=== PATIENT | male | born 1980 | race American Indian/Alaskan Native ===

== ENCOUNTER 2016-08-14 14:32 | Inpatient (IN) | payer BC ==
[2016-08-14] MEDS ORDERED: Sodium Chloride 0.9% 1,000 ML IV STA (15:13)
[2016-08-14] MEDS ORDERED: Morphine 4 mg/ml ISec IVP STA (15:29)
--- NOTE | 2016-08-14 15:31 | ED PDOC ---
Arrival/HPI <Jennifer Medina - Last Filed: 08/14/16 19:07> - General Historian: Patient <Cherri Diaz PA-C - Last Filed: 08/15/16 02:13> - General Chief Complaint: Abdominal Pain Time Seen by Provider: 08/14/16 14:48 - History of Present Illness Narrative History of Present Illness (Text): 08/14/16 15:30 36 yo M with past medical history of hypertension, presents to the emergency room complaining of one-week history of constant non-radiating left upper quadrant pain. Patient describes the pain as a bloating sensation that is worse at night and especially with eating. Patient states that he was seen at [facility] on Monday for similar symptoms, had blood work and a CAT scan which were within normal limits and was discharged. He then followed up next day with a GI doctor. Dr. Agrawal, he was prescribed Dexilant, Nexium and Carafate, which he has been taking since with no improvement of his symptoms prompting ER visit. He adds that he is scheduled for outpatient endoscopy in 1 week. He further adds that for the past several months he has developed intermittent episodes of indigestion, food intolerance, and reflux, to the point that he stopped eating beef. Otherwise: (-) nausea / vomiting, (-) diarrhea, (-) fever, (-) melena, (-) hematochezia, (-) urinary symptoms, (-) dyspnea, (-) SOB. Has no history of prior abdominal surgery. Of note, pt's bp is noted to be elevated, he states that he took his bp medication just uniform [employer]. Reports no headache or dizziness. PMD not on staff FAIZAN Agrawal (Cherri Diaz PA-C) Past Medical History - Provider Review Nursing Documentation Reviewed: Yes - Cardiac Hx Cardiac Disorders: Yes Hx Hypertension: Yes - Pulmonary Hx Respiratory Disorders: No - Neurological Hx Neurological Disorder: No - HEENT Hx HEENT Disorder: No - Renal Hx Renal Disorder: No - Endocrine/Metabolic Hx Endocrine Disorders: No - Hematological/Oncological Hx Blood Disorders: No - Integumentary Hx Dermatological Disorder: No - Musculoskeletal/Rheumatological Hx Musculoskeletal Disorders: No - Gastrointestinal Hx Gastrointestinal Disorders: No - Genitourinary/Gynecological Hx Genitourinary Disorders: No - Psychiatric Hx Psychophysiologic Disorder: No Hx Substance Use: No <Cherri Diaz PA-C - Last Filed: 08/15/16 02:13> Family/Social History - Physician Review Nursing Documentation Reviewed: Yes Family/Social History: Diabetes Smoking Status: Light Smoker < 10 Cigarettes Daily Hx Alcohol Use: No Hx Substance Use: No <Cherri Diaz PA-C - Last Filed: 08/15/16 02:13> Allergies/Home Meds <Jennifer Medina - Last Filed: 08/14/16 19:07> <Cherri Diaz PA-C - Last Filed: 08/15/16 02:13> Allergies/Adverse Reactions: Allergies No Known Allergies Allergy (Verified 08/14/16 14:42) Home Medications: Home Meds Medication Instructions Recorded Confirmed Dexlansoprazole [Dexilant] 60 mg PO DAILY 08/14/16 08/14/16 Omeprazole [Omeprazole] 40 mg PO DAILY 08/14/16 08/14/16 Sucralfate [Carafate Tab] 1 gm PO QID 08/14/16 08/14/16 amLODIPine [Norvasc] 10 mg PO DAILY 08/14/16 08/14/16 Review of Systems - Review of Systems Constitutional: Normal. absent: Fatigue, Weight Change, Fevers Respiratory: Normal. absent: SOB, Cough, Sputum Cardiovascular: Normal. absent: Chest Pain, Palpitations, Edema Gastrointestinal: Normal, Abdominal Pain, Appetite Changes. absent: Stool Changes, Diarrhea Musculoskeletal: Normal. absent: Arthralgias, Back Pain, Neck Pain Skin: Normal. absent: Rash, Pruritis, Skin Lesions <Cherri Diaz PA-C - Last Filed: 08/15/16 02:13> Physical Exam <Jennifer Medina - Last Filed: 08/14/16 19:07> <Cherri Diaz PA-C - Last Filed: 08/15/16 02:13> - Physical Exam Narrative Physical Exam (Text): 08/14/16 15:29 GENERAL APPEARANCE: Patient is awake, alert, oriented x 3, in mild painful distress. SKIN: Warm, dry; (-) cyanosis. EYES: (-) conjunctival pallor, (-) scleral icterus. ENMT: Mucous membranes dry. NECK: (-) tenderness, (-) stiffness, (-) lymphadenopathy. CHEST AND RESPIRATORY: (-) rales, (-) rhonchi, (-) wheezes; breath sounds equal bilaterally. HEART AND CARDIOVASCULAR: (-) irregularity; (-) murmur, (-) gallop. ABDOMEN AND GI: (-) distention. Bowel sounds active; (+) moderate tenderness epigastric and left side of the abdomen, greatest in the left upper quadrant, (- ) guarding, (-) rebound, (-) palpable masses, (-) CVA tenderness. (-) Celestin's sign. EXTREMITIES: (-) deformity, (-) edema, (+) distal pulses. NEURO AND PSYCH: Mental status as above; (-) focal findings. (Cherri Diaz PA-C) Vital Signs Temp Pulse Resp BP Pulse Ox 08/14/16 19:53 80 19 152/94 H 98 08/14/16 19:41 74 19 170/90 H 98 08/14/16 19:19 78 19 180/120 H 98 08/14/16 18:43 80 215/131 H 08/14/16 17:43 83 214/139 H 08/14/16 17:31 72 19 214/139 H 98 08/14/16 16:25 74 19 198/131 H 98 08/14/16 14:42 98.8 F 92 H 16 175/123 H 97 Medical Decision Making <Jennifer Medina - Last Filed: 08/14/16 19:07> <Cherri Diaz PA-C - Last Filed: 08/15/16 02:13> ED Course and Treatment: 08/14/16 15:28 36 yo M with past medical history of hypertension, presents to the emergency room complaining of one-week history of constant left upper quadrant pain. R/o acute cholecystitis vs cholelithiasis, likely dyspepsia. Plan: -- Labs -- IV fluids -- Urinalysis -- EKG -- CXR -- Protonix / Morphine / Zofran -- Reassess and disposition -- US ABD -- Consult with GI Call placed to Dr. Agrawal, and case discussed. he agrees with current plan, states if all diagnostics are normal and if pt is still symptomatic, to keep the patient for inpt observation and will do endoscopy tomorrow. EKG: NSR at 87 bpm, (-) acute ST changes, as read by LORI. CXR : NAD, as read by LORI Repeat BP 198/131 08/14/16 16:38 Labs reviewed and are wnl. US of the abdomen shows no gallstones or signs of cholecystitis. On re-evaluation, patient is resting in bed comfortably in no acute distress, still reports of abdominal pain. On exam, abdomen remains soft with mild L sided tenderness, no guarding or rebound. Call placed to Dr. Agrawal. Pt's BP 214/139 P 72, given clonidine 0.2 mg po. He denies any headache, dizziness, CP, SOB or palpitations. Diagnostic results d/w the patient in great detail, likely diagnosis d/w the pt and his . He verbalize understanding of the possible diagnosis. Case d/w Dr. Agrawal, diagnostic results discussed with him and he request that the pt stay for inpt observation under medical service, Dr. Rasmussen. Dr. Love notified of case and agrees with inpt observation. and Further plan of care d/w the pt and he agrees with plan. Bridge orders and consults placed. Pt's BP still elevated given labetolol 20 mg IV. (Joe MITTAL,Cherri Michel) - Lab Interpretations Lab Results: 08/14/16 14:57 08/14/16 14:57 Lab Results 08/14/16 16:18: Urine Color Yellow, Urine Appearance Clear, Urine pH 7.0, Ur Specific [place] 1.010, Urine Protein Negative, Urine Glucose (UA) Negative, Urine Ketones Negative, Urine Blood Negative, Urine Nitrate Negative, Urine Bilirubin Negative, Urine Urobilinogen 0.2, Ur Leukocyte Esterase Negative 08/14/16 14:57: Sodium 141, Potassium 4.5, Chloride 106, Carbon Dioxide 25, Anion Gap 15, BUN 13, Creatinine 1.2, Est GFR ( Amer) > 60, Est GFR (Non- Af Amer) > 60, Random Glucose 88, Calcium 9.6, Magnesium 1.9, Total Bilirubin 0.4, AST 24, ALT 18, Alkaline Phosphatase 54, Lactate Dehydrogenase 480, Total Creatine Kinase 113, Troponin I < 0.01, Total Protein 7.5, Albumin 4.1, Globulin 3.5, Albumin/Globulin Ratio 1.2, Lipase 166 08/14/16 14:57: PT 10.1, INR 0.94, APTT 31.5 H 08/14/16 14:57: WBC 6.4, RBC 4.61, Hgb 14.1, Hct 38.6 L, MCV 83.7, MCH 30.6, MCHC 36.5, RDW 13.6, Plt Count 279, MPV 9.8, Gran % 43.0 L, Lymph % (Auto) 45.6 H, [place] % (Auto) 7.8 H, Eos % (Auto) 3.4, Baso % (Auto) 0.2, Gran # 2.76, Lymph # 2.9, [place] # 0.5, Eos # 0.2, Baso # 0.01 - RAD Interpretation Narrative RAD Interpretations (Text): 08/14/16 16:37 US abd: FINDINGS: LIVER: Measures 14.4 cm. Hepatopedal blood flow. Fatty infiltration manifest ultrasonographically as increased echogenicity of the liver parenchyma. No mass. No intrahepatic bile duct dilatation. GALLBLADDER: Unremarkable. No gallstones. COMMON BILE DUCT: Measures 4.3 mm. No stones. No dilatation. PANCREAS: Unremarkable as visualized. No mass. No ductal dilatation. RIGHT KIDNEY: Measures 4.3 x 9.5cm. Multiple echogenic foci consistent with nonobstructing calculus disease. LEFT KIDNEY: Measures 4.8 x 10.8cm. Multiple echogenic foci the largest 10 mm consistent with nonobstructing calculi. SPLEEN: Normal in size and contour. No mass. AORTA: No aneurysmal dilatation. IVC: Unremarkable. OTHER FINDINGS: None. IMPRESSION: Nephrolithiasis, bilaterally. These are nonobstructing calculi. Hepatic steatosis. No focal masses. No intrahepatic bile duct dilatation or perihepatic ascites. (Joe MITTAL,Cherri Michel) Radiology Orders: 08/14/16 15:13 ABDOMEN COMPLETE [US] Stat 08/14/16 15:18 CHEST TWO VIEWS (PA/LAT) [RAD] Stat - Medication Orders Current Medication Orders: Amlodipine Besylate (Norvasc) 10 mg PO DAILY STEPHEN Sodium Chloride (Sodium Chloride 0.9%) 1,000 mls @ 75 mls/hr IV .[id number] [facility] Last Admin: 08/14/16 18:32 Dose: 75 mls/hr Ondansetron HCl (Zofran Inj) 4 mg IVP Q6 STEPHEN Pantoprazole Sodium (Protonix Inj) 40 mg IVP DAILY [facility] Pantoprazole Sodium (Protonix Ec Tab) 40 mg PO 0600 [facility] Sucralfate (Carafate Tab) 1 gm PO QID [facility] Last Admin: 08/14/16 23:27 Dose: 1 gm Discontinued Medications Clonidine HCl (Catapres) 0.2 mg PO STAT STA Stop: 08/14/16 17:35 Last Admin: 08/14/16 17:43 Dose: 0.2 mg Sodium Chloride (Sodium Chloride 0.9%) 1,000 mls @ 1,000 mls/hr IV .Q1H STA Stop: 08/14/16 16:12 Last Admin: 08/14/16 15:27 Dose: 1,000 mls/hr Sodium Chloride (Sodium Chloride 0.9%) 1,000 mls @ 100 mls/hr IV .Q10H [facility]PH[facility] Labetalol HCl (Trandate) 20 mg IV STAT STA Stop: 08/14/16 18:30 Last Admin: 08/14/16 18:43 Dose: 20 mg Morphine Sulfate (Morphine) 4 mg IVP STAT STA Stop: 08/14/16 15:30 Last Admin: 08/14/16 16:18 Dose: 4 mg Ondansetron HCl (Zofran Inj) 4 mg IVP STAT STA Stop: 08/14/16 15:30 Last Admin: 08/14/16 16:18 Dose: 4 mg Pantoprazole Sodium (Protonix Inj) 40 mg IVP STAT STA Stop: 08/14/16 15:14 Last Admin: 08/14/16 15:28 Dose: 40 mg - PA / FLIGHT COMMUNICATIONS OPERATOR / Resident Statement TYRONE has reviewed & agrees with the documentation as recorded. TYRONE has examined the patient and agrees with the treatment plan. <Jnenifer Medina - Last Filed: 08/14/16 19:07> - PA / FLIGHT COMMUNICATIONS OPERATOR / Resident Statement TYRONE has reviewed & agrees with the documentation as recorded. <Cherri Diaz PA-C - Last Filed: 08/15/16 02:13> Disposition/Present on Arrival <Jennifer Medina - Last Filed: 08/14/16 19:07> - Present on Arrival Any Indicators Present on Arrival: No History of DVT/PE: No History of Uncontrolled Diabetes: No Urinary Catheter: No History of Decub. Ulcer: No History Surgical Site Infection Following: None - Disposition Have Diagnosis and Disposition been Completed?: Yes Disposition Time: 16:53 Patient Plan: Observation (inpatient ) <Cherri Diaz PA-C - Last Filed: 08/15/16 02:13> - Disposition Diagnosis: Abdominal pain, Dyspepsia Disposition: HOSPITALIZED Patient Problems: Current Active Problems Problem Status Onset Abdominal pain Acute Dyspepsia Acute Condition: STABLE
[2016-08-14 15:39] LABS: BASO # 0.01 K/mm3 (0.0-2.0); BASO % 0.2 % (0.0-3.0); EOS # 0.2 (0.0-0.7); EOS % 3.4 % (1.5-5.0); GRAN # 2.76 (1.4-6.5); HEMOGLOBIN 14.1 gm/dL (14.0-18.0); LYMPH # 2.9 (1.2-3.4); LYMPH % 45.6 % (22.0-35.0); MEAN CELL VOLUME 83.7 fL (80.0-105.0); MEAN CORPUSCULAR HEMOGLOBIN 30.6 pg (25.0-35.0); MEAN CORPUSCULAR HGB CONC 36.5 g/dl (31.0-37.0); MEAN PLATELET VOLUME 9.8 fl (7.0-11.0); MONO # 0.5 (0.1-0.6); MONO % 7.8 % (1.0-6.0); PLATELET COUNT 279 10^3/uL (120.0-450.0); RBC 4.61 10^6/uL (3.5-6.1); RED CELL DISTRIBUTION WIDTH 13.6 % (11.5-14.5); WHITE BLOOD COUNT 6.4 10^3/ul (4.5-11.0)
[2016-08-14 15:43] LABS: ALB/GLOB RATIO 1.2 (1.1-1.8); ALBUMIN 4.1 g/dL (3.0-4.8); ALT/SGPT 18 U/L (7-56); AST/SGOT 24 U/L (15-59); BLOOD UREA NITROGEN 13 mg/dL (7-21); CALCIUM 9.6 mg/dL (8.4-10.5); GFR AFRICAN-AMERICAN > 60; GFR NON-AFRICAN AMERICAN > 60; LIPASE 166 U/L (23-300); MAGNESIUM 1.9 mg/dL (1.7-2.2)
[2016-08-14 15:54] LABS: INR 0.94 (0.93-1.08); PARTIAL THROMBOPLASTIN TIME 31.5 Seconds (23.7-30.8); PROTHROMBIN TIME 10.1 Seconds (9.9-11.8)
[2016-08-14 16:04] LABS: TROPONIN I < 0.01 ng/mL
--- NOTE | 2016-08-14 16:12 | US ---
HISTORY: epigastric pain COMPARISON: None. TECHNIQUE: Sonographic evaluation of the abdomen. FINDINGS: LIVER: Measures 14.4 cm. Hepatopedal blood flow. Fatty infiltration manifest ultrasonographically as increased echogenicity of the liver parenchyma. No mass. No intrahepatic bile duct dilatation. GALLBLADDER: Unremarkable. No gallstones. COMMON BILE DUCT: Measures 4.3 mm. No stones. No dilatation. PANCREAS: Unremarkable as visualized. No mass. No ductal dilatation. RIGHT KIDNEY: Measures 4.3 x 9.5cm. Multiple echogenic foci consistent with nonobstructing calculus disease. LEFT KIDNEY: Measures 4.8 x 10.8cm. Multiple echogenic foci the largest 10 mm consistent with nonobstructing calculi. SPLEEN: Normal in size and contour. No mass. AORTA: No aneurysmal dilatation. IVC: Unremarkable. OTHER FINDINGS: None. IMPRESSION: Nephrolithiasis, bilaterally. These are nonobstructing calculi. Hepatic steatosis. No focal masses. No intrahepatic bile duct dilatation or perihepatic ascites.
[2016-08-14 16:28] LABS: URINE BILIRUBIN NEGATIVE (NEGATIVE); URINE BLOOD NEGATIVE (NEGATIVE); URINE GLUCOSE (UA) NEGATIVE (NEGATIVE); URINE LEUKOCYTE ESTERASE NEGATIVE Leu/uL (NEGATIVE); URINE NITRATE NEGATIVE (NEGATIVE); URINE PROTEIN NEGATIVE mg/dL (<30 mg/dL); URINE UROBILINOGEN 0.2 E.U./dL (<1 E.U./dL)
[2016-08-14 16:29] LABS: URINE APPEARANCE CLEAR (CLEAR); URINE COLOR YELLOW (YELLOW)
--- NOTE | 2016-08-14 17:29 | RAD ---
HISTORY: Epigastric pain. COMPARISON: No prior. TECHNIQUE: Chest PA and lateral FINDINGS: LUNGS: No active pulmonary disease. PLEURA: No significant pleural effusion identified. No pneumothorax apparent. CARDIOVASCULAR: Normal. OSSEOUS STRUCTURES: No significant abnormalities. VISUALIZED UPPER ABDOMEN: Normal. OTHER FINDINGS: None. IMPRESSION: No active disease.
--- NOTE | 2016-08-14 18:10 | CP.PCM.HP ---
<De Smith - Last Filed: 08/18/16 10:00> History of Present Illness - History of Present Illness History of Present Illness: This is a 36 yo male with past medical hx of GERD and HTN presenting with abdominal pain x 7 days. Pain is in LUQ and non radiating. Pain has not been getting better or worse. He was not doing any thing exertional when it started. He was just talking. It feels like gas pain to him. He has never had this pain before prior to this week. He recently went to see Dr. Agrawal in his office regarding the pain. He gave him some sample dexilant and told him to go to ER if pain continues. It did and so he came in. He denies cough, fevers, chills, vomiting, diarrhea, blood in urine, blood in stool. PMH: HTN, GERD PSH: detorsion of testicles Allergies: NKDA FH: DM Social hx: Heavy smoker, over 1 ppd. Social drinker. Marijuana user. Meds: dexilant, sucralfate, amlodopine, omeprezole Present on Admission - Present on Admission Any Indicators Present on Admission: No History of DVT/PE: No History of Uncontrolled Diabetes: No Urinary Catheter: No Decubitus Ulcer Present: No Review of Systems - Review of Systems All systems: reviewed and no additional remarkable complaints except Review of Systems: negative except per hpi - Constitutional Constitutional: absent: Chills, Weight Loss - EENT Eyes: absent: Blurred Vision - Cardiovascular Cardiovascular: absent: Chest Pain, Syncope - Respiratory Respiratory: absent: Cough, Dyspnea, Dyspnea on Exertion - Gastrointestinal Gastrointestinal: Abdominal Pain. absent: Hematochezia - Genitourinary Genitourinary: absent: Dysuria, Nocturia - Musculoskeletal Musculoskeletal: absent: Muscle Weakness, Myalgias - Integumentary Integumentary: absent: Swelling - Neurological Neurological: absent: Numbness, Focal Weakness, Syncope - Psychiatric Psychiatric: absent: Anxiety, Depression - Endocrine Endocrine: absent: Palpitations - Hematologic/Lymphatic Hematologic: absent: Easy Bruising Past Patient History - Infectious Disease Hx of Infectious Diseases: None - Tetanus Immunizations Tetanus Immunization: Unknown - Past Medical History & Family History Past Medical History?: Yes Past Family History: Reviewed and not pertinent - Past Social History Smoking Status: Heavy Smoker > 10 Cigarettes Daily Chewing Tobacco Use: No Cigar Use: No Alcohol: Social Drugs: Cannabis Home Situation {Lives}: Alone Domestic Violence: Negative - CARDIAC Hx Cardiac Disorders: Yes Hx Hypertension: Yes - PULMONARY Hx Respiratory Disorders: No - NEUROLOGICAL Hx Neurological Disorder: No - HEENT Hx HEENT Problems: No - RENAL Hx Chronic Kidney Disease: No - ENDOCRINE/METABOLIC Hx Endocrine Disorders: No - HEMATOLOGICAL/ONCOLOGICAL Hx Blood Disorders: No - INTEGUMENTARY Hx Dermatological Problems: No - MUSCULOSKELETAL/RHEUMATOLOGICAL Hx Musculoskeletal Disorders: No - GASTROINTESTINAL Hx Gastrointestinal Disorders: No - GENITOURINARY/GYNECOLOGICAL Hx Genitourinary Disorders: No - PSYCHIATRIC Hx Psychophysiologic Disorder: No Hx Substance Use: No - SURGICAL HISTORY Hx Surgeries: No Meds Home Medications: Home Medication List Medication Instructions Recorded Confirmed Type Lisinopril [Zestril] 20 mg PO DAILY #7 tab 08/17/16 Rx amLODIPine [Norvasc] 10 mg PO DAILY #7 tab 08/17/16 Rx hydroCHLOROthiazide [Microzide] 12.5 mg PO DAILY #7 cap 08/17/16 Rx Allergies/Adverse Reactions: Allergies Allergy/AdvReac Type Severity Reaction Status Date / Time No Known Allergies Allergy Verified 08/14/16 14:42 Physical Exam - Constitutional Appears: Non-toxic, No Acute Distress - Head Exam Head Exam: ATRAUMATIC, NORMAL INSPECTION, NORMOCEPHALIC - Eye Exam Eye Exam: EOMI - ENT Exam ENT Exam: Mucous Membranes Moist - Neck Exam Neck exam: Positive for: Full Rom, Normal Inspection - Respiratory Exam Respiratory Exam: NORMAL BREATHING PATTERN. absent: Respiratory Distress - Cardiovascular Exam Cardiovascular Exam: +S1, +S2 - GI/Abdominal Exam GI & Abdominal Exam: Tenderness. absent: Guarding, Rebound Additional comments: moderate tenderness luq - Extremities Exam Extremities exam: Positive for: normal inspection - Neurological Exam Neurological exam: Alert, Oriented x3 - Psychiatric Exam Psychiatric exam: Normal Affect, Normal Mood - Skin Skin Exam: Dry, Intact, Normal Color, Warm Results - Vital Signs Recent Vital Signs: Last Vital Signs Temp 98.8 F 08/14/16 14:42 Pulse 83 08/14/16 17:43 Resp 19 08/14/16 17:31 BP 214/139 H 08/14/16 17:43 Pulse Ox 98 08/14/16 17:31 - Labs Result Diagrams: 08/17/16 05:30 08/17/16 05:30 Labs: Laboratory Results - last 24 hr 08/14/16 08/14/16 08/14/16 14:57 14:57 14:57 WBC 6.4 RBC 4.61 Hgb 14.1 Hct 38.6 L MCV 83.7 MCH 30.6 MCHC 36.5 RDW 13.6 Plt Count 279 MPV 9.8 Gran % 43.0 L Lymph % (Auto) 45.6 H [place] % (Auto) 7.8 H Eos % (Auto) 3.4 Baso % (Auto) 0.2 Gran # 2.76 Lymph # 2.9 [place] # 0.5 Eos # 0.2 Baso # 0.01 PT 10.1 INR 0.94 APTT 31.5 H Sodium 141 Potassium 4.5 Chloride 106 Carbon Dioxide 25 Anion Gap 15 BUN 13 Creatinine 1.2 Est GFR ( Amer) > 60 Est GFR (Non-Af Amer) > 60 Random Glucose 88 Calcium 9.6 Magnesium 1.9 Total Bilirubin 0.4 AST 24 ALT 18 Alkaline Phosphatase 54 Lactate Dehydrogenase 480 Total Creatine Kinase 113 Troponin I < 0.01 Total Protein 7.5 Albumin 4.1 Globulin 3.5 Albumin/Globulin Ratio 1.2 Lipase 166 Urine Color Urine Appearance Urine pH Ur Specific [place] Urine Protein Urine Glucose (UA) Urine Ketones Urine Blood Urine Nitrate Urine Bilirubin Urine Urobilinogen Ur Leukocyte Esterase 08/14/16 16:18 WBC RBC Hgb Hct MCV MCH MCHC RDW Plt Count MPV Gran % Lymph % (Auto) [place] % (Auto) Eos % (Auto) Baso % (Auto) Gran # Lymph # [place] # Eos # Baso # PT INR APTT Sodium Potassium Chloride Carbon Dioxide Anion Gap BUN Creatinine Est GFR ( Amer) Est GFR (Non-Af Amer) Random Glucose Calcium Magnesium Total Bilirubin AST ALT Alkaline Phosphatase Lactate Dehydrogenase Total Creatine Kinase Troponin I Total Protein Albumin Globulin Albumin/Globulin Ratio Lipase Urine Color Yellow Urine Appearance Clear Urine pH 7.0 Ur Specific [place] 1.010 Urine Protein Negative Urine Glucose (UA) Negative Urine Ketones Negative Urine Blood Negative Urine Nitrate Negative Urine Bilirubin Negative Urine Urobilinogen 0.2 Ur Leukocyte Esterase Negative Assessment & Plan - Assessment and Plan (Free Text) Assessment: This is a 36 yo male with past medical hx of GERD and HTN presenting with abdominal pain x 7 days 1. Abdominal pain -abd us shows nonobstructing calculi and fatty liver -cxr neg -Dr. Agrawal consulted. recs appreciated -plan for endo tomorrow -protonix -fluids -repeat labs am -zofran for nausea -ivf 2. hx of HTN -elevated bp over 200 in er -clonidine given -pt asymptomatic -will resume home meds 3. hx of gerd -resume dexilant -protonix 4. gi/dvt ppx -protonix -scds <Micheal Rasmussen - Last Filed: 08/30/16 10:05> Results - Vital Signs Recent Vital Signs: Last Vital Signs Temp 98.4 F 08/17/16 15:40 Pulse 84 08/17/16 16:17 Resp 16 08/17/16 15:40 BP 200/110 H 08/17/16 16:17 Pulse Ox 99 08/17/16 15:40 - Labs Result Diagrams: 08/17/16 05:30 08/17/16 05:30 Attending/Attestation - Attestation I have personally seen and examined this patient.: Yes I have fully participated in the care of the patient.: Yes I have reviewed all pertinent clinical information: Yes Notes (Text): 08/30/16 10:05 Medical record note made by resident after discussion with my direction and input after the patient personally seen and examined by me. I have reviewed the chart and agree that the note represents my personal history, physical, data review and plan.
[2016-08-14] MEDS ORDERED: Sodium Chloride 0.9% 1,000 ML IV SCH ×2 (18:15)
[2016-08-14] MEDS ORDERED: Labetalol 5 mg/ml Inj 20ML IV STA (18:29)
[2016-08-14 19:36] LABS: BARBITURATES, UR NEGATIVE (NEGATIVE); BENZODIAZEPINES, UR NEGATIVE (NEGATIVE); OPIATES, UR POSITIVE (NEGATIVE); PHENCYCLIDINE, UR NEGATIVE (NEGATIVE)
[2016-08-14 21:18] VITALS: BMI 27.7
[2016-08-15 08:03] LABS: BASO # 0.01 K/mm3 (0.0-2.0); BASO % 0.2 % (0.0-3.0); EOS # 0.2 (0.0-0.7); EOS % 2.5 % (1.5-5.0); GRAN # 3.22 (1.4-6.5); GRAN % 53.9 % (50.0-68.0); HEMOGLOBIN 14.5 gm/dL (14.0-18.0); LYMPH # 2.1 (1.2-3.4); LYMPH % 35.5 % (22.0-35.0); MEAN CELL VOLUME 83.2 fL (80.0-105.0); MEAN CORPUSCULAR HEMOGLOBIN 30.1 pg (25.0-35.0); MEAN CORPUSCULAR HGB CONC 36.3 g/dl (31.0-37.0); MEAN PLATELET VOLUME 9.7 fl (7.0-11.0); MONO # 0.5 (0.1-0.6); MONO % 7.9 % (1.0-6.0); PLATELET COUNT 267 10^3/uL (120.0-450.0); RBC 4.81 10^6/uL (3.5-6.1); RED CELL DISTRIBUTION WIDTH 13.6 % (11.5-14.5)
[2016-08-15 08:13] LABS: ALB/GLOB RATIO 1.1 (1.1-1.8); ALBUMIN 4.3 g/dL (3.0-4.8); ALT/SGPT 25 U/L (7-56); AST/SGOT 25 U/L (15-59); BLOOD UREA NITROGEN 8 mg/dL (7-21); CALCIUM 9.4 mg/dL (8.4-10.5); GFR AFRICAN-AMERICAN > 60; GFR NON-AFRICAN AMERICAN > 60
[2016-08-15] MEDS: Pantoprazole 40 mg EC Tab PO SCH (08:39)
--- NOTE | 2016-08-15 11:19 | CP.PCM.CON ---
<Eev Tejeda - Last Filed: 08/15/16 11:17> History of Present Illness - History of Present Illness History of Present Illness: seen and examined earlier today. The chart was reviewed. Request for consultation is for epigastric pain. HPI: This is a 36-year-old male with a past medical history of hypertension and GERD with complaints of abdominal pain for 7 days mostly in the epigastric area. The patient complains of gas pains. He was in our outpatient office recently and was given samples of excellent which patient states helped the GERD but he continues to have epigastric pain. He describes it as if someone is caking him in the chest. Denies any shortness of breath. He did have an abdominal ultrasound on admission which was negative for gallstones but common bile duct measured 4 mm. Denies any use of NSAIDs. No complaints of any change in bowel habits or any overt GI bleed. Denies any nausea vomiting hematemesis. No complaints of any dysuria or hematuria. Past medical history: GERD, hypertension Surgical history: To torsion of testicles Family history: Diabetes mellitus Allergies no known drug allergies Medications: Reviewed as per MAR Social history: Patient smokes over a one pack per day, drinks alcohol only socially, patient uses marijuana or recreational purposes, last usage was prior to coming to the hospital. ROS: Systems reviewed with positive findings see HPI Abdominal ultrasound: No gallstones, common bile duct measures 4 mm, fatty liver Past Patient History - Infectious Disease Hx of Infectious Diseases: None - Tetanus Immunizations Tetanus Immunization: Unknown - Past Medical History & Family History Past Medical History?: Yes Past Family History: Reviewed and not pertinent - Past Social History Smoking Status: Light Smoker < 10 Cigarettes Daily - CARDIAC Hx Cardiac Disorders: Yes Hx Hypertension: Yes - PULMONARY Hx Respiratory Disorders: No - NEUROLOGICAL Hx Neurological Disorder: No - HEENT Hx HEENT Problems: No - RENAL Hx Chronic Kidney Disease: No - ENDOCRINE/METABOLIC Hx Endocrine Disorders: No - HEMATOLOGICAL/ONCOLOGICAL Hx Blood Disorders: No - INTEGUMENTARY Hx Dermatological Problems: No - MUSCULOSKELETAL/RHEUMATOLOGICAL Hx Musculoskeletal Disorders: No - GASTROINTESTINAL Hx Gastrointestinal Disorders: No - GENITOURINARY/GYNECOLOGICAL Hx Genitourinary Disorders: No - PSYCHIATRIC Hx Psychophysiologic Disorder: No Hx Substance Use: No - SURGICAL HISTORY Hx Surgeries: No Meds Allergies/Adverse Reactions: Allergies Allergy/AdvReac Type Severity Reaction Status Date / Time No Known Allergies Allergy Verified 08/14/16 14:42 - Medications Medications: Current Medications Amlodipine Besylate (Norvasc) 10 mg PO DAILY [facility] Last Admin: 08/15/16 10:12 Dose: 10 mg Sodium Chloride (Sodium Chloride 0.9%) 1,000 mls @ 75 mls/hr IV .[id number] [facility] Last Admin: 08/14/16 18:32 Dose: 75 mls/hr Ondansetron HCl (Zofran Inj) 4 mg IVP Q6 [facility] Last Admin: 08/15/16 06:32 Dose: 4 mg Pantoprazole Sodium (Protonix Inj) 40 mg IVP DAILY [facility] Last Admin: 08/15/16 10:12 Dose: 40 mg Pantoprazole Sodium (Protonix Ec Tab) 40 mg PO 0600 [facility] Last Admin: 08/15/16 08:39 Dose: Not Given Sucralfate (Carafate Tab) 1 gm PO ACHS [facility] Last Admin: 08/15/16 08:39 Dose: Not Given Physical Exam - Constitutional Appears: No Acute Distress - Head Exam Head Exam: NORMAL INSPECTION - Eye Exam Eye Exam: Normal appearance, PERRL. absent: Scleral icterus - ENT Exam ENT Exam: Mucous Membranes Moist - Neck Exam Neck exam: Positive for: Normal Inspection - Respiratory Exam Respiratory Exam: Clear to Auscultation Bilateral, NORMAL BREATHING PATTERN. absent: Respiratory Distress - Cardiovascular Exam Cardiovascular Exam: +S1, +S2 - GI/Abdominal Exam GI & Abdominal Exam: Normal Bowel Sounds, Soft, Tenderness. absent: Guarding, Organomegaly, Rebound Additional comments: epigastric tenderness - Extremities Exam Extremities exam: Positive for: pedal pulses present. Negative for: calf tenderness, pedal edema - Neurological Exam Neurological exam: Alert, Oriented x3 - Skin Skin Exam: Dry, Warm Results - Vital Signs Recent Vital Signs: Last Vital Signs Temp 97.7 F 08/15/16 08:52 Pulse 73 08/15/16 08:52 Resp 18 08/15/16 08:52 BP 168/100 H 08/15/16 10:12 Pulse Ox 100 08/15/16 08:52 - Labs Result Diagrams: 08/15/16 07:40 08/15/16 07:40 Labs: Laboratory Results - last 24 hr 08/14/16 08/15/16 08/15/16 18:35 07:40 07:40 WBC 6.0 RBC 4.81 Hgb 14.5 Hct 40.0 L MCV 83.2 MCH 30.1 MCHC 36.3 RDW 13.6 Plt Count 267 MPV 9.7 Gran % 53.9 Lymph % (Auto) 35.5 H [place] % (Auto) 7.9 H Eos % (Auto) 2.5 Baso % (Auto) 0.2 Gran # 3.22 Lymph # 2.1 [place] # 0.5 Eos # 0.2 Baso # 0.01 Sodium 141 Potassium 3.7 Chloride 107 Carbon Dioxide 25 Anion Gap 13 BUN 8 Creatinine 1.1 Est GFR ( Amer) > 60 Est GFR (Non-Af Amer) > 60 Random Glucose 81 Calcium 9.4 Total Bilirubin 0.5 AST 25 ALT 25 Alkaline Phosphatase 67 Total Protein 8.2 Albumin 4.3 Globulin 3.9 Albumin/Globulin Ratio 1.1 Urine Opiates Screen Positive H Urine Methadone Screen Negative Ur Barbiturates Screen Negative Ur Phencyclidine Scrn Negative Ur Amphetamines Screen Negative U Benzodiazepines Scrn Negative U Oth Cocaine Metabols Negative U Cannabinoids Screen Positive H Assessment & Plan - Assessment and Plan (Free Text) Assessment: Assessment: Epigastric pain, rule out peptic ulcer disease Hypertension Fatty liver Plan: Nothing by mouth, continue IV after hydration Plan for EGD today Continue Protonix 40 daily On Carafate On amlodipine Thank you for this consultation and for allowing us to participate in your patient's care, will make further recommendations based upon patient's clinical course. Seen and discussed with Dr. Agrawal. <Marjorie Agrawal V - Last Filed: 08/15/16 23:49> Meds - Medications Medications: Current Medications Amlodipine Besylate (Norvasc) 10 mg PO DAILY [facility] Last Admin: 08/15/16 10:12 Dose: 10 mg Clonidine HCl (Catapres) 0.1 mg PO TID [facility] Last Admin: 08/15/16 17:46 Dose: 0.1 mg Sodium Chloride (Sodium Chloride 0.9%) 1,000 mls @ 75 mls/hr IV .[id number] [facility] Last Admin: 08/14/16 18:32 Dose: 75 mls/hr Dextrose/Sodium Chloride (Dextrose 5%/0.45% Ns 1000 Ml) 1,000 mls @ 150 mls/hr IV .Q6H40M [facility] Nicardipine HCl (Cardene Iv Premix) 20 mg in 200 mls @ 50 mls/hr IV .Q4H PRN; Protocol; 5 MG/HR PRN Reason: TITRATE PER PROTOCOL Last Admin: 08/15/16 21:46 Dose: 5 mg/hr, 50 mls/hr Ondansetron HCl (Zofran Inj) 4 mg IVP Q6 [facility] Last Admin: 08/15/16 17:45 Dose: Not Given Pantoprazole Sodium (Protonix Inj) 40 mg IVP DAILY [facility] Last Admin: 08/15/16 10:12 Dose: 40 mg Pantoprazole Sodium (Protonix Ec Tab) 40 mg PO 0600 [facility] Last Admin: 08/15/16 08:39 Dose: Not Given Polyethylene Glycol (Miralax) 17 gm PO DAILY [facility] Sucralfate (Carafate Tab) 1 gm PO ACHS [facility] Last Admin: 08/15/16 21:11 Dose: 1 gm Tamsulosin HCl (Flomax) 0.4 mg PO DAILY [facility] Results - Vital Signs Recent Vital Signs: Last Vital Signs Temp 97.5 F L 08/15/16 15:13 Pulse 83 08/15/16 20:30 Resp 11 L 08/15/16 20:30 BP 135/68 08/15/16 20:00 Pulse Ox 99 08/15/16 19:10 - Labs Result Diagrams: 08/15/16 07:40 08/15/16 07:40 Labs: Laboratory Results - last 24 hr 08/15/16 15:30 Lactate Dehydrogenase 413 Total Creatine Kinase 109 Troponin I < 0.01 Attending/Attestation - Attestation I have personally seen and examined this patient.: Yes I have fully participated in the care of the patient.: Yes I have reviewed all pertinent clinical information: Yes Notes (Text): this
[2016-08-15] MEDS ORDERED: POLYETHYLENE GLYCOL 3350 17 GM/Dose PACKET PO ONE (11:28)
--- NOTE | 2016-08-15 11:30 | CARD ---
APPROVED REPORT EKG Measurement Heart [id number] <Conclusion> Normal sinus rhythm Possible Left atrial enlargement Borderline ECG
[2016-08-15] MEDS: Nicardipine 20 MG/200 ML 20 MG/200 ML BAG IV PRN ×3 (13:46→21:46)
--- NOTE | 2016-08-15 14:15 | CP.PCM.CON ---
<Kisha Patel - Last Filed: 08/15/16 15:34> History of Present Illness - History of Present Illness History of Present Illness: PGY-2 ICU consult note 36-year-old male with a past medical history of hypertension and GERD presented to ED with abdominal pain for the past week. 7 days mostly in the epigastric area. Patient was admitted to hospital and was scheduled to endoscopy. Before he could get scoped his blood pressure was found to be elevated. Patient states that he is non complaint with home blood pressure medications. He states that the epigastric pain has improved, pain is 6/10. Patient denies fever, chills, chest pain, n/v/d/c. PMH: GERD, hypertension PSH: To torsion of testicles Family hx: Diabetes mellitus Allergies: NKDA Social history: smoker, 1ppd, drinks alcohol only socially, patient uses marijuana or recreational purposes Review of Systems - Constitutional Constitutional: absent: Chills, Fatigue, Fever, Headache - EENT Eyes: absent: Blurred Vision Nose/Mouth/Throat: absent: Nasal Congestion, Nasal Discharge, Sore Throat - Cardiovascular Cardiovascular: absent: Chest Pain, Diaphoresis, Dyspnea, Leg Edema, Lightheadedness - Respiratory Respiratory: absent: Cough, Dyspnea, Hemoptysis - Gastrointestinal Gastrointestinal: Abdominal Pain (epigastric). absent: Constipation, Diarrhea, Nausea, Vomiting - Genitourinary Genitourinary: absent: Change in Urinary Stream, Difficulty Urinating, Dysuria - Musculoskeletal Musculoskeletal: absent: Arthralgias, Back Pain, Myalgias, Neck Pain - Integumentary Integumentary: absent: Pruritus, Rash, Sores, Wounds, Jaundice - Neurological Neurological: absent: Dizziness, Numbness, Headaches, Vertigo - Hematologic/Lymphatic Hematologic: absent: Easy Bleeding, Easy Bruising Past Patient History - Infectious Disease Hx of Infectious Diseases: None - Tetanus Immunizations Tetanus Immunization: Unknown - Past Medical History & Family History Past Medical History?: Yes Past Family History: Reviewed and not pertinent - Past Social History Smoking Status: Heavy Smoker > 10 Cigarettes Daily Alcohol: Social Drugs: Cannabis - CARDIAC Hx Cardiac Disorders: Yes Hx Hypertension: Yes - PULMONARY Hx Respiratory Disorders: No - NEUROLOGICAL Hx Neurological Disorder: No - HEENT Hx HEENT Problems: No - RENAL Hx Chronic Kidney Disease: No - ENDOCRINE/METABOLIC Hx Endocrine Disorders: No - HEMATOLOGICAL/ONCOLOGICAL Hx Blood Disorders: No - INTEGUMENTARY Hx Dermatological Problems: No - MUSCULOSKELETAL/RHEUMATOLOGICAL Hx Musculoskeletal Disorders: No - GASTROINTESTINAL Hx Gastrointestinal Disorders: No - GENITOURINARY/GYNECOLOGICAL Hx Genitourinary Disorders: No - PSYCHIATRIC Hx Psychophysiologic Disorder: No Hx Substance Use: No - SURGICAL HISTORY Hx Surgeries: No Meds Allergies/Adverse Reactions: Allergies Allergy/AdvReac Type Severity Reaction Status Date / Time No Known Allergies Allergy Verified 08/14/16 14:42 - Medications Medications: Current Medications Amlodipine Besylate (Norvasc) 10 mg PO DAILY [facility] Last Admin: 08/15/16 10:12 Dose: 10 mg Clonidine HCl (Catapres) 0.1 mg PO TID [facility] Last Admin: 08/15/16 13:30 Dose: 0.1 mg Sodium Chloride (Sodium Chloride 0.9%) 1,000 mls @ 75 mls/hr IV .[id number] [facility] Last Admin: 08/14/16 18:32 Dose: 75 mls/hr Dextrose/Sodium Chloride (Dextrose 5%/0.45% Ns 1000 Ml) 1,000 mls @ 150 mls/hr IV .Q6H40M [facility] Nicardipine HCl (Cardene Iv Premix) 20 mg in 200 mls @ 50 mls/hr IV .Q4H PRN; Protocol; 5 MG/HR PRN Reason: TITRATE PER PROTOCOL Last Admin: 08/15/16 13:46 Dose: 5 mg/hr, 50 mls/hr Ondansetron HCl (Zofran Inj) 4 mg IVP Q6 [facility] Last Admin: 08/15/16 12:49 Dose: Not Given Pantoprazole Sodium (Protonix Inj) 40 mg IVP DAILY [facility] Last Admin: 08/15/16 10:12 Dose: 40 mg Pantoprazole Sodium (Protonix Ec Tab) 40 mg PO 0600 [facility] Last Admin: 08/15/16 08:39 Dose: Not Given Polyethylene Glycol (Miralax) 17 gm PO DAILY [facility] Sucralfate (Carafate Tab) 1 gm PO ACHS [facility] Last Admin: 08/15/16 12:01 Dose: Not Given Tamsulosin HCl (Flomax) 0.4 mg PO DAILY [facility] Physical Exam - Constitutional Appears: Well, No Acute Distress - Head Exam Head Exam: ATRAUMATIC, NORMOCEPHALIC - Eye Exam Eye Exam: EOMI, Normal appearance - ENT Exam ENT Exam: Mucous Membranes Moist - Respiratory Exam Respiratory Exam: Clear to Auscultation Bilateral, NORMAL BREATHING PATTERN. absent: Rales, Rhonchi, Wheezes, Respiratory Distress - Cardiovascular Exam Cardiovascular Exam: REGULAR RHYTHM, +S1, +S2. absent: Tachycardia, Diastolic murmur, Systolic Murmur - GI/Abdominal Exam GI & Abdominal Exam: Normal Bowel Sounds, Soft, Tenderness. absent: Distended, Firm - Neurological Exam Neurological exam: Alert, Oriented x3 - Skin Skin Exam: Dry, Intact, Normal Color, Warm Results - Vital Signs Recent Vital Signs: Last Vital Signs Temp 99.1 F 08/15/16 13:00 Pulse 89 08/15/16 14:00 Resp 22 08/15/16 14:00 BP 181/106 H 08/15/16 14:00 Pulse Ox 99 08/15/16 13:45 - Labs Result Diagrams: 08/15/16 07:40 08/15/16 07:40 Labs: Laboratory Results - last 24 hr 08/14/16 08/15/16 08/15/16 18:35 07:40 07:40 WBC 6.0 RBC 4.81 Hgb 14.5 Hct 40.0 L MCV 83.2 MCH 30.1 MCHC 36.3 RDW 13.6 Plt Count 267 MPV 9.7 Gran % 53.9 Lymph % (Auto) 35.5 H [place] % (Auto) 7.9 H Eos % (Auto) 2.5 Baso % (Auto) 0.2 Gran # 3.22 Lymph # 2.1 [place] # 0.5 Eos # 0.2 Baso # 0.01 Sodium 141 Potassium 3.7 Chloride 107 Carbon Dioxide 25 Anion Gap 13 BUN 8 Creatinine 1.1 Est GFR ( Amer) > 60 Est GFR (Non-Af Amer) > 60 Random Glucose 81 Calcium 9.4 Total Bilirubin 0.5 AST 25 ALT 25 Alkaline Phosphatase 67 Total Protein 8.2 Albumin 4.3 Globulin 3.9 Albumin/Globulin Ratio 1.1 Urine Opiates Screen Positive H Urine Methadone Screen Negative Ur Barbiturates Screen Negative Ur Phencyclidine Scrn Negative Ur Amphetamines Screen Negative U Benzodiazepines Scrn Negative U Oth Cocaine Metabols Negative U Cannabinoids Screen Positive H Assessment & Plan - Assessment and Plan (Free Text) Assessment: 36-year-old male with a past medical history of hypertension and GERD presented with HTN urgency. Plan: Neuro: Patient is alert adn oriented. CV: Hypertensive, will start nicardipine drip, clonidine 0.1 TID, continue to monitor. Pulm: Comfortable on RA. Maintain spO2>90% GI: heart health diet, GI following, unable to complete endoscopy due to elevated BP. ultrasound showed nephrolithiasis bilateral, nonobstructing calculi Neprho: ultrasound showed nephrolithiasis bilateral, nonobstructing calculi. Urology consulted. Will continue to monitor electrolytes and will replace as needed. Monitor I&O. Maintain euvolemia ID: afebrile without leukocytosis, Maintain normothermia Endo: Maintain euglycemia GI ppx: Protonix <Kai Menard - Last Filed: 08/15/16 17:05> Meds - Medications Medications: Current Medications Amlodipine Besylate (Norvasc) 10 mg PO DAILY [facility] Last Admin: 08/15/16 10:12 Dose: 10 mg Clonidine HCl (Catapres) 0.1 mg PO TID [facility] Last Admin: 08/15/16 13:30 Dose: 0.1 mg Sodium Chloride (Sodium Chloride 0.9%) 1,000 mls @ 75 mls/hr IV .[id number] [facility] Last Admin: 08/14/16 18:32 Dose: 75 mls/hr Dextrose/Sodium Chloride (Dextrose 5%/0.45% Ns 1000 Ml) 1,000 mls @ 150 mls/hr IV .Q6H40M [facility] Nicardipine HCl (Cardene Iv Premix) 20 mg in 200 mls @ 50 mls/hr IV .Q4H PRN; Protocol; 5 MG/HR PRN Reason: TITRATE PER PROTOCOL Last Admin: 08/15/16 13:46 Dose: 5 mg/hr, 50 mls/hr Ondansetron HCl (Zofran Inj) 4 mg IVP Q6 [facility] Last Admin: 08/15/16 12:49 Dose: Not Given Pantoprazole Sodium (Protonix Inj) 40 mg IVP DAILY [facility] Last Admin: 08/15/16 10:12 Dose: 40 mg Pantoprazole Sodium (Protonix Ec Tab) 40 mg PO 0600 [facility] Last Admin: 08/15/16 08:39 Dose: Not Given Polyethylene Glycol (Miralax) 17 gm PO DAILY [facility] Sucralfate (Carafate Tab) 1 gm PO ACHS [facility] Last Admin: 08/15/16 16:06 Dose: 1 gm Tamsulosin HCl (Flomax) 0.4 mg PO DAILY [facility] Results - Vital Signs Recent Vital Signs: Last Vital Signs Temp 97.5 F L 08/15/16 15:13 Pulse 88 08/15/16 15:13 Resp 20 08/15/16 15:13 BP 165/101 H 08/15/16 15:13 Pulse Ox 99 08/15/16 14:30 - Labs Result Diagrams: 08/15/16 07:40 08/15/16 07:40 Labs: Laboratory Results - last 24 hr 08/15/16 15:30 Lactate Dehydrogenase 413 Total Creatine Kinase 109 Troponin I < 0.01 Attending/Attestation - Attestation I have personally seen and examined this patient.: Yes I have fully participated in the care of the patient.: Yes I have reviewed all pertinent clinical information: Yes Notes (Text): 08/15/16 17:01 36 yo male with hypertensive emergency. Unable to control BP with IV boluses and po. Admitted to ICU for cardene drip. No end organ dysfunction. mentating well, not in shock, troponin x 2 negative, creatinine is improving. not in respiratory distress and epigastric pain is decreasing. Abdo US did not reveal AAA. Will start clonidine PO to expedite weaning off antihypertnsive drip. ccm time 40 min
[2016-08-15 14:32] VITALS: O2SAT 99
--- NOTE | 2016-08-15 15:28 | CP.PCM.PN ---
<Naresh Trinidad - Last Filed: 08/15/16 15:20> Subjective - Date & Time of Evaluation Date of Evaluation: 08/15/16 Time of Evaluation: 07:10 - Subjective Subjective: Naresh Trinidad D.O. PGY-2, Internal Medicine, Dr. Rasmussen Service: Progress Note 36 year old male with a PMH of HTN who presented for complaints of LUQ pain for 1 week. Patient was seen and examined at bedside with business services intern and attending physician. Patient states that his pain is currently well controlled with the pain regimen he is on and otherwise has not had any other acute issues. Patient is going to have an EGD today. No overnight events. Objective - Vital Signs/Intake and Output Vital Signs (last 24 hours): Temp Pulse Resp BP Pulse Ox 99.1 F 90 17 165/99 H 99 08/15/16 13:00 08/15/16 14:30 08/15/16 14:30 08/15/16 14:30 08/15/16 14:30 - Medications Medications: Current Medications Amlodipine Besylate (Norvasc) 10 mg PO DAILY [facility] Last Admin: 08/15/16 10:12 Dose: 10 mg Clonidine HCl (Catapres) 0.1 mg PO TID [facility] Last Admin: 08/15/16 13:30 Dose: 0.1 mg Sodium Chloride (Sodium Chloride 0.9%) 1,000 mls @ 75 mls/hr IV .[id number] [facility] Last Admin: 08/14/16 18:32 Dose: 75 mls/hr Dextrose/Sodium Chloride (Dextrose 5%/0.45% Ns 1000 Ml) 1,000 mls @ 150 mls/hr IV .Q6H40M [facility] Nicardipine HCl (Cardene Iv Premix) 20 mg in 200 mls @ 50 mls/hr IV .Q4H PRN; Protocol; 5 MG/HR PRN Reason: TITRATE PER PROTOCOL Last Admin: 08/15/16 13:46 Dose: 5 mg/hr, 50 mls/hr Ondansetron HCl (Zofran Inj) 4 mg IVP Q6 [facility] Last Admin: 08/15/16 12:49 Dose: Not Given Pantoprazole Sodium (Protonix Inj) 40 mg IVP DAILY [facility] Last Admin: 08/15/16 10:12 Dose: 40 mg Pantoprazole Sodium (Protonix Ec Tab) 40 mg PO 0600 [facility] Last Admin: 08/15/16 08:39 Dose: Not Given Polyethylene Glycol (Miralax) 17 gm PO DAILY [facility] Sucralfate (Carafate Tab) 1 gm PO ACHS [facility] Last Admin: 08/15/16 12:01 Dose: Not Given Tamsulosin HCl (Flomax) 0.4 mg PO DAILY [facility] - Labs Labs: PT 10.1 Seconds (9.9-11.8) 08/14/16 14:57 INR 0.94 (0.93-1.08) 08/14/16 14:57 APTT 31.5 Seconds (23.7-30.8) H 08/14/16 14:57 - Constitutional Appears: well developed, well nourished, in NAD - Head Exam Head Exam: ATRAUMATIC, NORMAL INSPECTION, NORMOCEPHALIC - Eye Exam Eye Exam: EOMI, PERRL - ENT Exam ENT Exam: Mucous Membranes Moist, no pharyngeal erythema - Neck Exam Neck exam: soft and supple - Respiratory Exam Respiratory Exam: CTAB, no W/R/R - Cardiovascular Exam Cardiovascular Exam: RRR, +S1, +S2, no M/R/G - GI/Abdominal Exam GI & Abdominal Exam: soft, mild voluntary guarding, mild distension, LUQ tenderness to palpation, positive CVA on left - Extremities Exam Extremities exam: no calf tenderness, no edema - Neurological Exam Neurological exam: Alert, Oriented x4 - Skin Skin Exam: Dry, Intact, Normal Color, Warm Assessment and Plan - Assessment and Plan (Free Text) Assessment: 36 year old male with a PMH of HTN who presented for complaints of LUQ pain for 1 week. Plan: 1. LUQ/epigastric abdominal pain Likely 2/2 BL nephrolithiasis L>R with 10mm stone seen on US vs gastritis vs gastric ulcer GI Dr. Agrawal following, schedule for endoscopy today Urology Dr. Story also consulted, pending recs Started flomax, D5 1/2NS @ 150ml/hr, already on amlodipine 10mg Strain all urine 2. HTN - uncontrolled Patient noncompliant at home Compliance re-enforced Cont amlodipine 3. GERD Continue protonix GI following GI/DVT ppx: protonix/SCDs Patient was seen and examined and case was discussed with attending physician. <Micheal Rasmussen - Last Filed: 08/30/16 10:04> Objective - Vital Signs/Intake and Output Vital Signs (last 24 hours): Temp Pulse Resp BP Pulse Ox 98.4 F 84 16 200/110 H 99 08/17/16 15:40 08/17/16 16:17 08/17/16 15:40 08/17/16 16:17 08/17/16 15:40 - Labs Labs: 08/17/16 05:30 08/17/16 05:30 PT 10.1 Seconds (9.9-11.8) 08/14/16 14:57 INR 0.94 (0.93-1.08) 08/14/16 14:57 APTT 31.5 Seconds (23.7-30.8) H 08/14/16 14:57 Attending/Attestation - Attestation I have personally seen and examined this patient.: Yes I have fully participated in the care of the patient.: Yes I have reviewed all pertinent clinical information, including history, physical exam and plan: Yes Notes (Text): 08/30/16 10:04 Medical record note made by resident after discussion with my direction and input after the patient personally seen and examined by me. I have reviewed the chart and agree that the note represents my personal history, physical, data review and plan.
[2016-08-15] MEDS ORDERED: Magnesium Citrate Oral SOL (300 ml) PO ONE (16:16)
[2016-08-15 16:22] LABS: TROPONIN I < 0.01 ng/mL
[2016-08-16 05:37] LABS: BASO # 0.01 K/mm3 (0.0-2.0); BASO % 0.2 % (0.0-3.0); EOS # 0.2 (0.0-0.7); EOS % 2.4 % (1.5-5.0); GRAN % 42.1 % (50.0-68.0); HEMOGLOBIN 14.8 gm/dL (14.0-18.0); LYMPH # 2.8 (1.2-3.4); LYMPH % 45.4 % (22.0-35.0); MEAN CELL VOLUME 82.9 fL (80.0-105.0); MEAN CORPUSCULAR HEMOGLOBIN 30.5 pg (25.0-35.0); MEAN CORPUSCULAR HGB CONC 36.8 g/dl (31.0-37.0); MEAN PLATELET VOLUME 9.6 fl (7.0-11.0); MONO # 0.6 (0.1-0.6); MONO % 9.9 % (1.0-6.0); PLATELET COUNT 295 10^3/uL (120.0-450.0); RBC 4.85 10^6/uL (3.5-6.1); RED CELL DISTRIBUTION WIDTH 13.6 % (11.5-14.5); WHITE BLOOD COUNT 6.2 10^3/ul (4.5-11.0)
[2016-08-16 05:43] LABS: ALB/GLOB RATIO 1.1 (1.1-1.8); ALBUMIN 4.5 g/dL (3.0-4.8); ALT/SGPT 27 U/L (7-56); AST/SGOT 42 U/L (15-59); BLOOD UREA NITROGEN 13 mg/dL (7-21); CALCIUM 9.7 mg/dL (8.4-10.5); GFR AFRICAN-AMERICAN > 60; GFR NON-AFRICAN AMERICAN > 60
[2016-08-16] MEDS: Pantoprazole 40 mg EC Tab PO SCH (06:31)
--- NOTE | 2016-08-16 06:52 | PCM.URO ---
Urology Progress Note - Objective Lab Results Last 24 Hours: Laboratory Results - last 24 hr 08/15/16 08/16/16 08/16/16 15:30 04:45 04:45 WBC 6.2 RBC 4.85 Hgb 14.8 Hct 40.2 L MCV 82.9 MCH 30.5 MCHC 36.8 RDW 13.6 Plt Count 295 MPV 9.6 Gran % 42.1 L Lymph % (Auto) 45.4 H [place] % (Auto) 9.9 H Eos % (Auto) 2.4 Baso % (Auto) 0.2 Gran # 2.60 Lymph # 2.8 [place] # 0.6 Eos # 0.2 Baso # 0.01 Sodium 141 Potassium 4.0 Chloride 103 Carbon Dioxide 30 Anion Gap 12 BUN 13 Creatinine 1.3 Est GFR ( Amer) > 60 Est GFR (Non-Af Amer) > 60 Random Glucose 95 Calcium 9.7 Total Bilirubin 0.4 AST 42 ALT 27 Alkaline Phosphatase 74 Lactate Dehydrogenase 413 Total Creatine Kinase 109 Troponin I < 0.01 Total Protein 8.6 H Albumin 4.5 Globulin 4.1 Albumin/Globulin Ratio 1.1 Intake & Output: Intake & Output 08/15/16 08/15/16 08/16/16 06:59 18:59 06:59 Intake Total 200 400 Balance 200 400 Intake: IV 200 400 Other: Voiding Method Urinal Urinal Vital Signs: Vital Signs - 24 hr 08/15/16 08/15/16 08/15/16 15:13 15:42 15:50 Temperature 97.5 F L Pulse Rate 83 89 80 Respiratory 20 16 23 Rate Blood Pressure 165/101 H O2 Sat by Pulse 98 99 Oximetry 08/15/16 08/15/16 08/15/16 16:00 16:10 16:20 Temperature Pulse Rate 79 84 83 Respiratory 17 32 H 22 Rate Blood Pressure 173/97 H O2 Sat by Pulse 95 99 99 Oximetry 08/15/16 08/15/16 08/15/16 16:30 16:40 16:50 Temperature Pulse Rate 83 84 88 Respiratory 30 H 18 Rate Blood Pressure O2 Sat by Pulse 99 100 99 Oximetry 08/15/16 08/15/16 08/15/16 17:00 17:10 17:20 Temperature Pulse Rate 83 87 87 Respiratory 39 H 26 H 19 Rate Blood Pressure 148/81 O2 Sat by Pulse 98 99 99 Oximetry 08/15/16 08/15/16 08/15/16 17:30 17:40 17:46 Temperature Pulse Rate 84 83 88 Respiratory 25 H 66 H Rate Blood Pressure 148/81 O2 Sat by Pulse 100 99 Oximetry 08/15/16 08/15/16 08/15/16 17:50 18:00 18:10 Temperature Pulse Rate 94 H 94 H 102 H Respiratory 23 18 23 Rate Blood Pressure 152/98 H O2 Sat by Pulse 99 98 99 Oximetry 08/15/16 08/15/16 08/15/16 18:20 18:30 18:40 Temperature Pulse Rate 83 92 H 95 H Respiratory 23 24 24 Rate Blood Pressure O2 Sat by Pulse 100 99 99 Oximetry 08/15/16 08/15/16 08/15/16 18:50 19:00 19:10 Temperature Pulse Rate 89 83 83 Respiratory 22 22 22 Rate Blood Pressure 160/89 H O2 Sat by Pulse 99 99 99 Oximetry 08/15/16 08/15/16 08/15/16 19:20 19:30 19:40 Temperature Pulse Rate 93 H 87 90 Respiratory 51 H 22 20 Rate Blood Pressure O2 Sat by Pulse Oximetry 08/15/16 08/15/16 08/15/16 19:50 20:00 20:10 Temperature Pulse Rate 85 82 84 Respiratory 19 20 19 Rate Blood Pressure 135/68 O2 Sat by Pulse Oximetry 08/15/16 08/15/16 08/15/16 20:20 20:30 22:00 Temperature Pulse Rate 83 83 72 Respiratory 19 11 L 35 H Rate Blood Pressure 129/79 O2 Sat by Pulse Oximetry 08/15/16 08/15/16 08/15/16 22:10 22:20 22:30 Temperature Pulse Rate 77 72 73 Respiratory 23 17 17 Rate Blood Pressure O2 Sat by Pulse Oximetry 08/15/16 08/15/16 08/15/16 22:40 22:50 23:00 Temperature Pulse Rate 74 75 81 Respiratory 18 19 28 H Rate Blood Pressure 124/52 L O2 Sat by Pulse Oximetry 08/15/16 08/15/16 08/15/16 23:10 23:20 23:30 Temperature Pulse Rate 70 72 72 Respiratory 18 19 18 Rate Blood Pressure O2 Sat by Pulse Oximetry 08/15/16 08/15/16 08/16/16 23:40 23:50 00:00 Temperature Pulse Rate 73 74 72 Respiratory 18 18 21 Rate Blood Pressure 123/66 O2 Sat by Pulse Oximetry 08/16/16 08/16/16 08/16/16 00:10 00:20 00:30 Temperature Pulse Rate 72 77 75 Respiratory 19 19 18 Rate Blood Pressure O2 Sat by Pulse Oximetry 08/16/16 08/16/16 08/16/16 00:40 00:50 01:00 Temperature Pulse Rate 73 77 77 Respiratory 17 18 23 Rate Blood Pressure 101/50 L O2 Sat by Pulse Oximetry 08/16/16 08/16/16 08/16/16 01:10 01:20 01:30 Temperature Pulse Rate 76 76 74 Respiratory 18 20 22 Rate Blood Pressure O2 Sat by Pulse Oximetry 08/16/16 08/16/16 08/16/16 01:40 01:50 02:00 Temperature Pulse Rate 71 72 67 Respiratory 19 23 19 Rate Blood Pressure 123/73 O2 Sat by Pulse Oximetry 08/16/16 08/16/16 08/16/16 02:10 02:20 02:30 Temperature Pulse Rate 68 68 70 Respiratory 17 17 17 Rate Blood Pressure O2 Sat by Pulse Oximetry 08/16/16 08/16/16 08/16/16 02:40 02:50 03:00 Temperature Pulse Rate 73 72 73 Respiratory 21 18 20 Rate Blood Pressure O2 Sat by Pulse Oximetry 08/16/16 08/16/16 08/16/16 03:01 03:10 03:20 Temperature Pulse Rate 63 69 71 Respiratory 15 19 20 Rate Blood Pressure 141/66 O2 Sat by Pulse Oximetry 08/16/16 08/16/16 08/16/16 03:30 03:40 03:50 Temperature Pulse Rate 68 66 71 Respiratory 18 17 18 Rate Blood Pressure O2 Sat by Pulse Oximetry 08/16/16 08/16/16 08/16/16 04:00 04:10 04:20 Temperature Pulse Rate 76 82 72 Respiratory 19 28 H 18 Rate Blood Pressure 139/71 O2 Sat by Pulse Oximetry 08/16/16 08/16/16 08/16/16 04:30 04:40 04:50 Temperature Pulse Rate 76 72 74 Respiratory 60 H 19 18 Rate Blood Pressure O2 Sat by Pulse Oximetry
--- NOTE | 2016-08-16 07:56 | CP.PCM.PN ---
<ANAHI TIANJA - Last Filed: 08/16/16 10:56> Subjective - Date & Time of Evaluation Date of Evaluation: 08/16/16 Time of Evaluation: 07:47 - Subjective Subjective: Patient seen and examined at bedside. Pt was nauseous last night, requiring Zofran. BP dropped to 101/50 last night on Cardene drip, and was thus stopped. C /o of a mild headache and LUQ/epigastric pain 4/10, crampy, intermittent, nonradiating. Denies confusion, blurry vision, chest pain, SOB, urinary urgency. Objective - Vital Signs/Intake and Output Vital Signs (last 24 hours): Temp Pulse Resp BP Pulse Ox 97.5 F L 79 24 139/95 H 99 08/15/16 15:13 08/16/16 06:50 08/16/16 06:50 08/16/16 06:00 08/15/16 19:10 Intake and Output: 08/16/16 08/16/16 06:59 18:59 Intake Total 1400 Output Total 300 Balance 1100 - Medications Medications: Current Medications Amlodipine Besylate (Norvasc) 10 mg PO DAILY [facility] Last Admin: 08/15/16 10:12 Dose: 10 mg Clonidine HCl (Catapres) 0.1 mg PO TID [facility] Last Admin: 08/15/16 17:46 Dose: 0.1 mg Sodium Chloride (Sodium Chloride 0.9%) 1,000 mls @ 75 mls/hr IV .[id number] [facility] Last Admin: 08/14/16 18:32 Dose: 75 mls/hr Dextrose/Sodium Chloride (Dextrose 5%/0.45% Ns 1000 Ml) 1,000 mls @ 150 mls/hr IV .Q6H40M [facility] Nicardipine HCl (Cardene Iv Premix) 20 mg in 200 mls @ 50 mls/hr IV .Q4H PRN; Protocol; 5 MG/HR PRN Reason: TITRATE PER PROTOCOL Last Titration: 08/16/16 02:00 Dose: Infused Ondansetron HCl (Zofran Inj) 4 mg IVP Q6 [facility] Last Admin: 08/16/16 05:34 Dose: 4 mg Pantoprazole Sodium (Protonix Inj) 40 mg IVP DAILY [facility] Last Admin: 08/15/16 10:12 Dose: 40 mg Pantoprazole Sodium (Protonix Ec Tab) 40 mg PO 0600 [facility] Last Admin: 08/16/16 06:31 Dose: 40 mg Polyethylene Glycol (Miralax) 17 gm PO DAILY [facility] Sucralfate (Carafate Tab) 1 gm PO ACHS [facility] Last Admin: 08/16/16 07:35 Dose: 1 gm Tamsulosin HCl (Flomax) 0.4 mg PO DAILY [facility] - Labs Labs: 08/16/16 04:45 08/16/16 04:45 PT 10.1 Seconds (9.9-11.8) 08/14/16 14:57 INR 0.94 (0.93-1.08) 08/14/16 14:57 APTT 31.5 Seconds (23.7-30.8) H 08/14/16 14:57 - Constitutional Appears: Well - Head Exam Head Exam: ATRAUMATIC, NORMOCEPHALIC - Eye Exam Eye Exam: EOMI, PERRL - ENT Exam ENT Exam: Mucous Membranes Moist - Respiratory Exam Respiratory Exam: Clear to Ausculation Bilateral - Cardiovascular Exam Cardiovascular Exam: REGULAR RHYTHM, +S1, +S2. absent: Gallop, Rubs, Murmur - GI/Abdominal Exam GI & Abdominal Exam: Soft, Tenderness, Normal Bowel Sounds. absent: Pulsatile Mass, Rebound Additional comments: TTP on LUQ, epigastric area - Extremities Exam Extremities Exam: absent: Calf Tenderness, Pedal Edema - Back Exam Back Exam: absent: CVA tenderness (L), CVA tenderness (R) - Neurological Exam Neurological Exam: Alert, Awake, Oriented x3 - Psychiatric Exam Psychiatric exam: Normal Mood - Skin Skin Exam: Dry, Intact, Warm Assessment and Plan - Assessment and Plan (Free Text) Assessment: This is a 36M with PMH HTN, GERD, admitted to ICU for HTN urgency. Pt intially presented to ED for LUQ/epigastric pain x7 days [employer]. While awaiting EGD, his BP was high (215/131) with no symptoms. Labs unremarkable; abd US shows b/l nonobstructive nephrolithiasis, largest 10 mm on L kidney. Today, the cardene drip was turned off overnight with better BP readings, c/w Amlodipine 10mg daily. Will start Lisiniproil and Lopressor prn. Will obtain CT abd/pelvis with PO contrast. Awaiting EGD. Plan: Neuro: Patient is AAOx3. No mental status changes. CV: BP 123-1141/66-95 today. Cont to hold Cardene drip. C/w amlodipine 10 PO daily. Start Lisinopril 10 mg PO daily, Lopressor 5 mg IVP prn BP>180 Discontinue Clonidine Monitor BP. Pulm: Comfortable on RA. Maintain spO2>90% GI: On clear liquid diet. Awaiting EGD. F/u GI. Obtain CT abd/pelvis with PO contrast Abdominal ultrasound showed no gallstones or pancreatitis. Neprho: ultrasound showed nephrolithiasis bilateral, nonobstructing calculi. Urology consulted appreciated. Will f/u outpatient. F/u CT abd/pelvis Will continue to monitor electrolytes and will replace as needed. Monitor I&O. Maintain euvolemia ID: afebrile without leukocytosis, Maintain normothermia Endo: Maintain euglycemia GI ppx: Protonix DVT ppx: SCDs Activity: OOB to chair, increase as tolerated. Case reviewed and discussed with attending Dr. Shultz. Finn Tian, PGY1 <[facility] - Last Filed: 08/16/16 12:25> Objective - Vital Signs/Intake and Output Vital Signs (last 24 hours): Temp Pulse Resp BP Pulse Ox 98.0 F 73 22 133/84 99 08/16/16 09:00 08/16/16 11:33 08/16/16 10:10 08/16/16 11:33 08/15/16 19:10 Intake and Output: 08/16/16 08/16/16 06:59 18:59 Intake Total 1400 Output Total 300 Balance 1100 - Medications Medications: Current Medications Amlodipine Besylate (Norvasc) 10 mg PO DAILY [facility] Last Admin: 08/16/16 09:52 Dose: 10 mg Sodium Chloride (Sodium Chloride 0.9%) 1,000 mls @ 75 mls/hr IV .[id number] [facility] Last Admin: 08/14/16 18:32 Dose: 75 mls/hr Dextrose/Sodium Chloride (Dextrose 5%/0.45% Ns 1000 Ml) 1,000 mls @ 150 mls/hr IV .Q6H40M [facility] Last Admin: 08/16/16 08:00 Dose: 150 mls/hr Lisinopril (Zestril) 10 mg PO DAILY [facility] Last Admin: 08/16/16 11:33 Dose: 10 mg Metoprolol Tartrate (Lopressor) 5 mg IVP Q4 PRN PRN Reason: SBP >180, hold for HR<60 Ondansetron HCl (Zofran Inj) 4 mg IVP Q6 [facility] Last Admin: 08/16/16 11:34 Dose: 4 mg Pantoprazole Sodium (Protonix Ec Tab) 40 mg PO 0600 [facility] Last Admin: 08/16/16 06:31 Dose: 40 mg Polyethylene Glycol (Miralax) 17 gm PO DAILY [facility] Last Admin: 08/16/16 10:07 Dose: Not Given Sucralfate (Carafate Tab) 1 gm PO ACHS [facility] Last Admin: 08/16/16 11:35 Dose: 1 gm Tamsulosin HCl (Flomax) 0.4 mg PO DAILY [facility] Last Admin: 08/16/16 09:52 Dose: 0.4 mg - Labs Labs: 08/16/16 04:45 08/16/16 04:45 PT 10.1 Seconds (9.9-11.8) 08/14/16 14:57 INR 0.94 (0.93-1.08) 08/14/16 14:57 APTT 31.5 Seconds (23.7-30.8) H 08/14/16 14:57 Attending/Attestation - Attestation I have personally seen and examined this patient.: Yes I have fully participated in the care of the patient.: Yes I have reviewed all pertinent clinical information, including history, physical exam and plan: Yes Notes (Text): 08/16/16 12:23 36 y/o M w/ HTN urgency Placed on cardene GGT overnight, weaned off with Clonodine. Restart P.O anti HTN meds. ACEi, Ca blockers and minimal B blockers w/ PRN IVP Lopressor ABD pain unclear cause. May need CT abd/pelvis w/ p.o contrast. W d/w GI. ABD pain maybe from nephrolithiasis. Unclear if need for urgent intervention. Will d/w after CT and Urology eval. PPI DVT P Out of bed to chair . Keep SBP<180. cc time 65 min
[2016-08-16] MEDS: Dextrose 5%/0.45% NS 1,000 ML IV SCH ×3 (08:00→22:00)
[2016-08-16] MEDS: POLYETHYLENE GLYCOL 3350 17 GM/Dose PACKET PO SCH ×2 (09:53→10:07)
[2016-08-16] MEDS ORDERED: Metoprolol 1 mg/ml Inj IVP PRN (10:06)
[2016-08-16] MEDS ORDERED: Iohexol 350 MG/100 ML VIAL ONE (15:00)
[2016-08-16] MEDS ORDERED: Iohexol 240 (50 ml) ONE (15:00)
--- NOTE | 2016-08-16 18:29 | CP.PCM.PN ---
<VISH BLUE - Last Filed: 08/16/16 18:23> Subjective - Date & Time of Evaluation Date of Evaluation: 08/16/16 Time of Evaluation: 06:45 - Subjective Subjective: Vish Blue D.O. PGY-1, Internal Medicine, Dr. Rasmussen Service: Progress Note Patient was seen and examined at bedside. Today is hospital day 2. Yesterday, he was admitted to the ICU for hypertensive urgency, asymptomatic, while awaiting EGD. Initially, his BP was brought down on cardene drip. Overnight, his BP dropped to 101/50 on the drip, so it was discontinued. Today, he is still complaining of LUQ and epigastric abdominal pain, 4/10 in severity. He is also complaining of a mild headache. Denies CP, SOB, confusion, vision changes. Objective - Vital Signs/Intake and Output Vital Signs (last 24 hours): Temp Pulse Resp BP Pulse Ox 98.0 F 76 21 166/103 H 99 08/16/16 09:00 08/16/16 17:50 08/16/16 17:40 08/16/16 17:00 08/15/16 19:10 Intake and Output: 08/16/16 08/16/16 06:59 18:59 Intake Total 1400 3825 Output Total 300 1800 Balance 1100 5 - Medications Medications: Current Medications Acetaminophen (Tylenol 325mg Tab) 650 mg PO Q6H PRN PRN Reason: Pain, moderate (4-7) Last Admin: 08/16/16 12:39 Dose: 650 mg Amlodipine Besylate (Norvasc) 10 mg PO DAILY [facility] Last Admin: 08/16/16 09:52 Dose: 10 mg Sodium Chloride (Sodium Chloride 0.9%) 1,000 mls @ 75 mls/hr IV .[id number] [facility] Last Admin: 08/14/16 18:32 Dose: 75 mls/hr Dextrose/Sodium Chloride (Dextrose 5%/0.45% Ns 1000 Ml) 1,000 mls @ 150 mls/hr IV .Q6H40M [facility] Last Admin: 08/16/16 15:23 Dose: 150 mls/hr Lisinopril (Zestril) 10 mg PO DAILY [facility] Last Admin: 08/16/16 11:33 Dose: 10 mg Metoprolol Tartrate (Lopressor) 5 mg IVP Q4 PRN PRN Reason: SBP >180, hold for HR<60 Last Admin: 08/16/16 15:26 Dose: 5 mg Ondansetron HCl (Zofran Inj) 4 mg IVP Q6 [facility] Last Admin: 08/16/16 17:09 Dose: 4 mg Pantoprazole Sodium (Protonix Ec Tab) 40 mg PO 0600 [facility] Last Admin: 08/16/16 06:31 Dose: 40 mg Polyethylene Glycol (Miralax) 17 gm PO DAILY [facility] Last Admin: 08/16/16 10:07 Dose: Not Given Sucralfate (Carafate Tab) 1 gm PO ACHS [facility] Last Admin: 08/16/16 17:09 Dose: 1 gm Tamsulosin HCl (Flomax) 0.4 mg PO DAILY [facility] Last Admin: 08/16/16 09:52 Dose: 0.4 mg - Labs Labs: 08/16/16 04:45 08/16/16 04:45 PT 10.1 Seconds (9.9-11.8) 08/14/16 14:57 INR 0.94 (0.93-1.08) 08/14/16 14:57 APTT 31.5 Seconds (23.7-30.8) H 08/14/16 14:57 - Constitutional Appears: Well, Non-toxic, No Acute Distress - Eye Exam Eye Exam: EOMI, PERRL - ENT Exam ENT Exam: Mucous Membranes Moist - Neck Exam Neck Exam: absent: Lymphadenopathy, Thyromegaly - Respiratory Exam Respiratory Exam: Clear to Ausculation Bilateral. absent: Rales, Rhonchi, Wheezes - Cardiovascular Exam Cardiovascular Exam: RRR, +S1, +S2. absent: Murmur - GI/Abdominal Exam GI & Abdominal Exam: Soft, Normal Bowel Sounds. absent: Rigid Additional comments: Mild epigastric and LUQ tenderness - Extremities Exam Extremities Exam: Full ROM. absent: Calf Tenderness, Pedal Edema - Back Exam Back Exam: absent: CVA tenderness (L), CVA tenderness (R) - Neurological Exam Neurological Exam: Alert, Awake, Oriented x3 - Psychiatric Exam Psychiatric exam: Normal Affect, Normal Mood - Skin Skin Exam: Dry, Intact, Warm Assessment and Plan - Assessment and Plan (Free Text) Assessment: 36 year old male with a PMH of HTN and noncompliance who presented for complaints of LUQ pain for 1 week. Yesterday he was admitted to the ICU for hypertensive urgency. Plan: 1. LUQ/epigastric abdominal pain - Likely 2/2 BL nephrolithiasis L>R with 10mm stone seen on US vs gastritis vs gastric ulcer - GI Dr. Agrawal following, endoscopy deferred yesterday, reschedule pending control of BP - Urology (Dr. Story) consulted, appreciate all recs - Continue flomax, D5 1/2NS @ 150ml/hr, continue amlodipine 10mg - Continue to strain all urine 2. HTN - uncontrolled - Antihypertensives currently being managed in ICU, continue amlodipine 10mg QD , lisinopril 10mg QD, and lopressor PRN per ICU - Patient noncompliant at home - Compliance re-enforced 3. GERD - Continue protonix - GI following, appreciate all recs GI/DVT ppx: protonix/SCDs Patient was seen and examined and case was discussed with attending Dr. Hyatt. <Azael Hyatt - Last Filed: 08/17/16 15:33> Objective - Vital Signs/Intake and Output Vital Signs (last 24 hours): Temp Pulse Resp BP Pulse Ox 98.0 F 78 17 173/77 H 99 08/16/16 09:00 08/17/16 09:51 08/17/16 06:20 08/17/16 09:51 08/15/16 19:10 Intake and Output: 08/17/16 08/17/16 06:59 18:59 Intake Total 2000 Output Total 1999 Balance 0 - Medications Medications: Current Medications Acetaminophen (Tylenol 325mg Tab) 650 mg PO Q6H PRN PRN Reason: Pain, moderate (4-7) Last Admin: 08/16/16 12:39 Dose: 650 mg Amlodipine Besylate (Norvasc) 10 mg PO DAILY [facility] Last Admin: 08/17/16 09:51 Dose: 10 mg Sodium Chloride (Sodium Chloride 0.9%) 1,000 mls @ 75 mls/hr IV .[id number] [facility] Last Admin: 08/14/16 18:32 Dose: 75 mls/hr Dextrose/Sodium Chloride (Dextrose 5%/0.45% Ns 1000 Ml) 1,000 mls @ 150 mls/hr IV .Q6H40M [facility] Last Admin: 08/17/16 04:50 Dose: 150 mls/hr Lisinopril (Zestril) 10 mg PO DAILY [facility] Last Admin: 08/17/16 09:51 Dose: 10 mg Metoprolol Tartrate (Lopressor) 5 mg IVP Q4 PRN PRN Reason: SBP >180, hold for HR<60 Last Admin: 08/16/16 15:26 Dose: 5 mg Ondansetron HCl (Zofran Inj) 4 mg IVP Q6 [facility] Last Admin: 08/16/16 17:09 Dose: 4 mg Pantoprazole Sodium (Protonix Ec Tab) 40 mg PO 0600 [facility] Last Admin: 08/17/16 06:27 Dose: 40 mg Polyethylene Glycol (Miralax) 17 gm PO DAILY [facility] Last Admin: 08/17/16 14:21 Dose: Not Given Sucralfate (Carafate Tab) 1 gm PO ACHS [facility] Last Admin: 08/17/16 14:21 Dose: Not Given Tamsulosin HCl (Flomax) 0.4 mg PO DAILY [facility] Last Admin: 08/17/16 09:51 Dose: 0.4 mg - Labs Labs: 08/17/16 05:30 08/17/16 05:30 PT 10.1 Seconds (9.9-11.8) 08/14/16 14:57 INR 0.94 (0.93-1.08) 08/14/16 14:57 APTT 31.5 Seconds (23.7-30.8) H 08/14/16 14:57 Attending/Attestation - Attestation I have personally seen and examined this patient.: Yes I have fully participated in the care of the patient.: Yes I have reviewed all pertinent clinical information, including history, physical exam and plan: Yes Notes (Text): 08/17/16 15:33 Medical record note made by the resident after discussion with my direction and input after the patient was personally seen and examined by me. I have reviewed the chart and agree that the record accurately reflects by personal performance of the history, physical exam, data review, and medical decision-making, in the course for the patient. I have also personally directed the plan of care.
[2016-08-17] MEDS: Dextrose 5%/0.45% NS 1,000 ML IV SCH (04:50)
[2016-08-17 06:25] LABS: BASO # 0.01 K/mm3 (0.0-2.0); BASO % 0.2 % (0.0-3.0); EOS # 0.2 (0.0-0.7); EOS % 3.1 % (1.5-5.0); GRAN # 3.22 (1.4-6.5); HEMOGLOBIN 14.8 gm/dL (14.0-18.0); LYMPH # 2.1 (1.2-3.4); LYMPH % 34.8 % (22.0-35.0); MEAN CELL VOLUME 82.7 fL (80.0-105.0); MEAN CORPUSCULAR HEMOGLOBIN 29.8 pg (25.0-35.0); MEAN CORPUSCULAR HGB CONC 36.1 g/dl (31.0-37.0); MEAN PLATELET VOLUME 9.4 fl (7.0-11.0); MONO # 0.5 (0.1-0.6); MONO % 8.9 % (1.0-6.0); PLATELET COUNT 278 10^3/uL (120.0-450.0); RBC 4.96 10^6/uL (3.5-6.1); RED CELL DISTRIBUTION WIDTH 13.6 % (11.5-14.5); WHITE BLOOD COUNT 6.1 10^3/ul (4.5-11.0)
[2016-08-17] MEDS: Pantoprazole 40 mg EC Tab PO SCH (06:27)
[2016-08-17 06:45] LABS: ALB/GLOB RATIO 1.1 (1.1-1.8); ALBUMIN 4.3 g/dL (3.0-4.8); ALT/SGPT 35 U/L (7-56); AST/SGOT 38 U/L (15-59); BLOOD UREA NITROGEN 15 mg/dL (7-21); CALCIUM 9.3 mg/dL (8.4-10.5); GFR AFRICAN-AMERICAN > 60; GFR NON-AFRICAN AMERICAN > 60
--- NOTE | 2016-08-17 07:00 | CP.PCM.PN ---
Subjective - Date & Time of Evaluation Date of Evaluation: 08/16/16 Time of Evaluation: 14:00 - Subjective Subjective: this patient still complai epigastric and right upper quadrant discomfortblood pressure is now controlled. Objective - Vital Signs/Intake and Output Vital Signs (last 24 hours): Temp Pulse Resp BP Pulse Ox 98.0 F 68 17 149/88 99 08/16/16 09:00 08/16/16 22:00 08/16/16 21:50 08/16/16 22:00 08/15/16 19:10 Intake and Output: 08/16/16 08/17/16 18:59 06:59 Intake Total 3825 Output Total 1800 Balance 2024 - Medications Medications: Current Medications Acetaminophen (Tylenol 325mg Tab) 650 mg PO Q6H PRN PRN Reason: Pain, moderate (4-7) Last Admin: 08/16/16 12:39 Dose: 650 mg Amlodipine Besylate (Norvasc) 10 mg PO DAILY [facility] Last Admin: 08/16/16 09:52 Dose: 10 mg Sodium Chloride (Sodium Chloride 0.9%) 1,000 mls @ 75 mls/hr IV .[id number] [facility] Last Admin: 08/14/16 18:32 Dose: 75 mls/hr Dextrose/Sodium Chloride (Dextrose 5%/0.45% Ns 1000 Ml) 1,000 mls @ 150 mls/hr IV .Q6H40M [facility] Last Admin: 08/16/16 22:00 Dose: 150 mls/hr Lisinopril (Zestril) 10 mg PO DAILY [facility] Last Admin: 08/16/16 11:33 Dose: 10 mg Metoprolol Tartrate (Lopressor) 5 mg IVP Q4 PRN PRN Reason: SBP >180, hold for HR<60 Last Admin: 08/16/16 15:26 Dose: 5 mg Ondansetron HCl (Zofran Inj) 4 mg IVP Q6 [facility] Last Admin: 08/16/16 17:09 Dose: 4 mg Pantoprazole Sodium (Protonix Ec Tab) 40 mg PO 0600 [facility] Last Admin: 08/16/16 06:31 Dose: 40 mg Polyethylene Glycol (Miralax) 17 gm PO DAILY [facility] Last Admin: 08/16/16 10:07 Dose: Not Given Sucralfate (Carafate Tab) 1 gm PO ACHS [facility] Last Admin: 08/16/16 21:55 Dose: 1 gm Tamsulosin HCl (Flomax) 0.4 mg PO DAILY [facility] Last Admin: 08/16/16 09:52 Dose: 0.4 mg - Labs Labs: 08/16/16 04:45 08/16/16 04:45 PT 10.1 Seconds (9.9-11.8) 08/14/16 14:57 INR 0.94 (0.93-1.08) 08/14/16 14:57 APTT 31.5 Seconds (23.7-30.8) H 08/14/16 14:57 - Head Exam Head Exam: ATRAUMATIC, NORMOCEPHALIC - Eye Exam Eye Exam: EOMI Pupil Exam: PERRL - ENT Exam ENT Exam: Mucous Membranes Moist - Neck Exam Neck Exam: Full ROM. absent: Lymphadenopathy - Respiratory Exam Respiratory Exam: NORMAL BREATHING PATTERN. absent: Rales - Cardiovascular Exam Cardiovascular Exam: REGULAR RHYTHM, +S1, +S2 - GI/Abdominal Exam GI & Abdominal Exam: Soft, Normal Bowel Sounds Additional comments: mild tenderness on deep palpation epigastric area and right upper quadrant - Extremities Exam Extremities Exam: Full ROM, Normal Inspection. absent: Pedal Edema - Psychiatric Exam Psychiatric exam: Normal Affect, Normal Mood Assessment and Plan - Assessment and Plan (Free Text) Assessment: epigastric and right uppe pain etiology unclear. Differential diagnose peptic ulcer disease ero and pancreatitis pancreatic lesion also pancreatic lesion also s 2. Hypertension urgency controlled now 3. Renal stones urology follow-up Plan: 1. Continue PPI 2. Advance diet to soft cardiac diet 3. Follow-up CT of abdomen and pelvis 4. EGD tomorrow Discussed with the residen
--- NOTE | 2016-08-17 10:42 | CT ---
PROCEDURE: CT Abdomen and Pelvis with contrast HISTORY: abd pain COMPARISON: None. TECHNIQUE: Contrast dose: 100 cc of Omni 350 Radiation dose: Total exam DLP = 383 mGy-cm. This CT exam was performed using one or more of the following dose reduction techniques: Automated exposure control, adjustment of the mA and/or kV according to patient size, and/or use of iterative reconstruction technique. FINDINGS: LOWER THORAX: Unremarkable. LIVER: Unremarkable. No gross lesion or ductal dilatation. GALLBLADDER AND BILE DUCTS: Unremarkable. PANCREAS: Unremarkable. No gross lesion or ductal dilatation. SPLEEN: Unremarkable. ADRENALS: Unremarkable. No mass. KIDNEYS AND URETERS: Bilateral nonobstructing renal stones measuring between 3 and 5 mm in size VASCULATURE: Unremarkable. No aortic aneurysm. BOWEL: Unremarkable. No obstruction. No gross mural thickening. APPENDIX: Normal appendix. PERITONEUM: Unremarkable. No free fluid. No free air. LYMPH NODES: Unremarkable. No enlarged lymph nodes. BLADDER: Unremarkable. REPRODUCTIVE: Unremarkable. BONES: No acute fracture. OTHER FINDINGS: None. IMPRESSION: Bilateral nephrolithiasis. No evidence of ureteral stone or hydronephrosis. No acute intra-abdominal findings
[2016-08-17] MEDS: POLYETHYLENE GLYCOL 3350 17 GM/Dose PACKET PO SCH (14:21)
[2016-08-17] MEDS ORDERED: Propofol 10 mg/ml Inj (20 ML) ONE ×2 (15:06→15:12)
[2016-08-17 15:40] VITALS: RESP 16; TEMP 98.4
[2016-08-17 16:20] VITALS: BP 200/110; PULSE 84
--- NOTE | 2016-08-17 17:27 | CP.PCM.PN ---
Addendum entered and electronically signed by Naresh Trinidad DO 08/19/16 09:12: Extended discussion with patient, still wanted to leave AMA. Encouraged HIGHLY to see PCP, states will go 08/19/16. Patient encouraged to return for ANY worsening symptoms or concerns. Naresh Trinidad D.O. PGY-2 Addendum entered and electronically signed by NYA BLUE 08/17/16 17:33: Patient left AMA. Was given scripts for 7 days of HCTZ 10mg, Amlodipine 10mg, and Lisinopril 20mg. Patient says that he has PCP appointment on Monday, in two day. Original Note: <NYA BLUE - Last Filed: 08/17/16 17:24> Subjective - Date & Time of Evaluation Date of Evaluation: 08/17/16 Time of Evaluation: 06:45 - Subjective Subjective: Nya Blue D.O. PGY-1, Internal Medicine, Dr. Rasmussen Service: Progress Note Patient was seen and examined at bedside. Today is hospital day 3. Patient is still in the ICU for managing HTN. His BP has been elevated, but stable on PO antihypertensives. Today, his pain is 0/10 in severity. EGD is scheduled for 2 PM today. Anxiously awaiting discharge. Denies CP, SOB, AMAYA, confusion, vision changes. Objective - Vital Signs/Intake and Output Vital Signs (last 24 hours): Temp Pulse Resp BP Pulse Ox 98.4 F 84 16 200/110 H 99 08/17/16 15:40 08/17/16 16:17 08/17/16 15:40 08/17/16 16:17 08/17/16 15:40 Intake and Output: 08/17/16 08/17/16 06:59 18:59 Intake Total 1999 Output Total 1999 Balance 0 - Medications Medications: Current Medications Acetaminophen (Tylenol 325mg Tab) 650 mg PO Q6H PRN PRN Reason: Pain, moderate (4-7) Last Admin: 08/16/16 12:39 Dose: 650 mg Amlodipine Besylate (Norvasc) 10 mg PO DAILY [facility] Last Admin: 08/17/16 09:51 Dose: 10 mg Sodium Chloride (Sodium Chloride 0.9%) 1,000 mls @ 75 mls/hr IV .[id number] STEPHEN Last Admin: 08/14/16 18:32 Dose: 75 mls/hr Dextrose/Sodium Chloride (Dextrose 5%/0.45% Ns 1000 Ml) 1,000 mls @ 150 mls/hr IV .Q6H40M [facility] Last Admin: 08/17/16 04:50 Dose: 150 mls/hr Lisinopril (Zestril) 20 mg PO DAILY [facility] Metoprolol Tartrate (Lopressor) 5 mg IVP Q4 PRN PRN Reason: SBP >180, hold for HR<60 Last Admin: 08/16/16 15:26 Dose: 5 mg Ondansetron HCl (Zofran Inj) 4 mg IVP Q6 [facility] Last Admin: 08/16/16 17:09 Dose: 4 mg Pantoprazole Sodium (Protonix Ec Tab) 40 mg PO 0600 [facility] Last Admin: 08/17/16 06:27 Dose: 40 mg Polyethylene Glycol (Miralax) 17 gm PO DAILY [facility] Last Admin: 08/17/16 14:21 Dose: Not Given Sucralfate (Carafate Tab) 1 gm PO ACHS [facility] Last Admin: 08/17/16 14:21 Dose: Not Given Tamsulosin HCl (Flomax) 0.4 mg PO DAILY [facility] Last Admin: 08/17/16 09:51 Dose: 0.4 mg - Labs Labs: 08/17/16 05:30 08/17/16 05:30 PT 10.1 Seconds (9.9-11.8) 08/14/16 14:57 INR 0.94 (0.93-1.08) 08/14/16 14:57 APTT 31.5 Seconds (23.7-30.8) H 08/14/16 14:57 - Constitutional Appears: Well, Non-toxic, No Acute Distress - Head Exam Head Exam: ATRAUMATIC, NORMOCEPHALIC - Eye Exam Eye Exam: EOMI, Normal appearance, PERRL - ENT Exam ENT Exam: Mucous Membranes Moist - Neck Exam Neck Exam: Full ROM. absent: Lymphadenopathy, Thyromegaly - Respiratory Exam Respiratory Exam: Clear to Ausculation Bilateral. absent: Rales, Rhonchi, Wheezes - Cardiovascular Exam Cardiovascular Exam: RRR, +S1, +S2 - GI/Abdominal Exam GI & Abdominal Exam: Soft, Tenderness (epigastric, and LUQ), Normal Bowel Sounds - Extremities Exam Extremities Exam: absent: Calf Tenderness - Back Exam Back Exam: absent: CVA tenderness (L), CVA tenderness (R) - Neurological Exam Neurological Exam: Alert, Awake, Oriented x3 - Psychiatric Exam Psychiatric exam: Normal Affect, Normal Mood - Skin Skin Exam: Dry, Intact Assessment and Plan - Assessment and Plan (Free Text) Assessment: 36 year old male with a PMH of HTN and noncompliance who presented for complaints of LUQ pain for 1 week. He is currently in the ICU for hypertensive urgency. Plan: 1. LUQ/epigastric abdominal pain - Likely 2/2 BL nephrolithiasis L>R with 10mm stone seen on US vs gastritis vs gastric ulcer - GI Dr. Agrawal following, endoscopy scheduled today at 2 PM - Urology (Dr. Story) consulted, appreciate all recs - Continue flomax, D5 1/2NS @ 150ml/hr, continue amlodipine 10mg - Continue to strain all urine 2. HTN - uncontrolled - Antihypertensives currently being managed in ICU, continue amlodipine 10mg QD , lisinopril 10mg QD, and lopressor PRN per ICU - Patient noncompliant at home - Compliance re-enforced - Considering significant possibility of secondary cause, will order renal US 3. GERD - Continue protonix - GI following, appreciate all recs GI/DVT ppx: protonix/SCDs Patient was seen and examined and case was discussed with senior resident Dr. Trinidad PGY2 and attending Dr. Hyatt. <Azael Hyatt - Last Filed: 09/05/16 16:46> Objective - Vital Signs/Intake and Output Vital Signs (last 24 hours): Temp Pulse Resp BP Pulse Ox 98.4 F 84 16 200/110 H 99 08/17/16 15:40 08/17/16 16:17 08/17/16 15:40 08/17/16 16:17 08/17/16 15:40 - Labs Labs: 08/17/16 05:30 08/17/16 05:30 PT 10.1 Seconds (9.9-11.8) 08/14/16 14:57 INR 0.94 (0.93-1.08) 08/14/16 14:57 APTT 31.5 Seconds (23.7-30.8) H 08/14/16 14:57 Attending/Attestation - Attestation I have personally seen and examined this patient.: Yes I have fully participated in the care of the patient.: Yes I have reviewed all pertinent clinical information, including history, physical exam and plan: Yes Notes (Text): 09/05/16 16:46 Medical record note made by the resident after discussion with my direction and input after the patient was personally seen and examined by me. I have reviewed the chart and agree that the record accurately reflects by personal performance of the history, physical exam, data review, and medical decision-making, in the course for the patient. I have also personally directed the plan of care.
--- NOTE | 2016-08-19 09:14 | CP.PCM.DIS ---
<Naresh Trinidad - Last Filed: 08/19/16 14:34> Provider - Provider Date of Admission: 08/15/16 14:48 Attending physician: Micheal Rasmussen MD Primary care physician: NO PRIMARY CARE PROVIDER Consults: Uro Dr. Jez Agrawal Time Spent in preparation of Discharge (in minutes): 50 Diagnosis - Discharge Diagnosis (1) Hypertension, uncontrolled Status: Acute Priority: High (2) Gastritis Status: Acute (3) Kidney stones Status: Acute Hospital Course - Lab Results Lab Results: Most Recent Lab Values WBC 6.1 10^3/ul (4.5-11.0) 08/17/16 05:30 RBC 4.96 10^6/uL (3.5-6.1) 08/17/16 05:30 Hgb 14.8 gm/dL (14.0-18.0) 08/17/16 05:30 Hct 41.0 % (42.0-52.0) L 08/17/16 05:30 MCV 82.7 fL (80.0-105.0) 08/17/16 05:30 MCH 29.8 pg (25.0-35.0) 08/17/16 05:30 MCHC 36.1 g/dl (31.0-37.0) 08/17/16 05:30 RDW 13.6 % (11.5-14.5) 08/17/16 05:30 Plt Count 278 10^3/uL (120.0-450.0) 08/17/16 05:30 MPV 9.4 fl (7.0-11.0) 08/17/16 05:30 Gran % 53.0 % (50.0-68.0) 08/17/16 05:30 Lymph % (Auto) 34.8 % (22.0-35.0) 08/17/16 05:30 [place] % (Auto) 8.9 % (1.0-6.0) H 08/17/16 05:30 Eos % (Auto) 3.1 % (1.5-5.0) 08/17/16 05:30 Baso % (Auto) 0.2 % (0.0-3.0) 08/17/16 05:30 Gran # 3.22 (1.4-6.5) 08/17/16 05:30 Lymph # 2.1 (1.2-3.4) 08/17/16 05:30 [place] # 0.5 (0.1-0.6) 08/17/16 05:30 Eos # 0.2 (0.0-0.7) 08/17/16 05:30 Baso # 0.01 K/mm3 (0.0-2.0) 08/17/16 05:30 PT 10.1 Seconds (9.9-11.8) 08/14/16 14:57 INR 0.94 (0.93-1.08) 08/14/16 14:57 APTT 31.5 Seconds (23.7-30.8) H 08/14/16 14:57 Sodium 140 mmol/L (132-148) 08/17/16 05:30 Potassium 4.2 mmol/L (3.6-5.0) 08/17/16 05:30 Chloride 105 mmol/L (98-107) 08/17/16 05:30 Carbon Dioxide 28 mmol/L (21-33) 08/17/16 05:30 Anion Gap 11 (10-20) 08/17/16 05:30 BUN 15 mg/dL (7-21) 08/17/16 05:30 Creatinine 1.2 mg/dL (0.5-1.4) 08/17/16 05:30 Est GFR ( Amer) > 60 08/17/16 05:30 Est GFR (Non-Af Amer) > 60 08/17/16 05:30 Random Glucose 116 mg/dL (70-110) H 08/17/16 05:30 Calcium 9.3 mg/dL (8.4-10.5) 08/17/16 05:30 Magnesium 1.9 mg/dL (1.7-2.2) 08/14/16 14:57 Total Bilirubin 0.4 mg/dL (0.2-1.3) 08/17/16 05:30 AST 38 U/L (15-59) 08/17/16 05:30 ALT 35 U/L (7-56) 08/17/16 05:30 Alkaline Phosphatase 62 U/L (38-133) 08/17/16 05:30 Lactate Dehydrogenase 413 U/L (333-699) 08/15/16 15:30 Total Creatine Kinase 109 U/L (35-230) 08/15/16 15:30 Troponin I < 0.01 ng/mL 08/15/16 15:30 Total Protein 8.2 g/dL (5.8-8.3) 08/17/16 05:30 Albumin 4.3 g/dL (3.0-4.8) 08/17/16 05:30 Globulin 4.0 gm/dL 08/17/16 05:30 Albumin/Globulin Ratio 1.1 (1.1-1.8) 08/17/16 05:30 Lipase 166 U/L (23-300) 08/14/16 14:57 Urine Color Yellow (YELLOW) 08/14/16 16:18 Urine Appearance Clear (CLEAR) 08/14/16 16:18 Urine pH 7.0 (4.7-8.0) 08/14/16 16:18 Ur Specific [place] 1.010 (1.005-1.035) 08/14/16 16:18 Urine Protein Negative mg/dL (<30 mg/dL) 08/14/16 16:18 Urine Glucose (UA) Negative mg/dL (NEGATIVE) 08/14/16 16:18 Urine Ketones Negative mg/dL (NEGATIVE) 08/14/16 16:18 Urine Blood Negative (NEGATIVE) 08/14/16 16:18 Urine Nitrate Negative (NEGATIVE) 08/14/16 16:18 Urine Bilirubin Negative (NEGATIVE) 08/14/16 16:18 Urine Urobilinogen 0.2 E.U./dL (<1 E.U./dL) 08/14/16 16:18 Ur Leukocyte Esterase Negative Hugh/uL (NEGATIVE) 08/14/16 16:18 Urine Opiates Screen Positive (NEGATIVE) H 08/14/16 18:35 Urine Methadone Screen Negative (NEGATIVE) 08/14/16 18:35 Ur Barbiturates Screen Negative (NEGATIVE) 08/14/16 18:35 Ur Phencyclidine Scrn Negative (NEGATIVE) 08/14/16 18:35 Ur Amphetamines Screen Negative (NEGATIVE) 08/14/16 18:35 U Benzodiazepines Scrn Negative (NEGATIVE) 08/14/16 18:35 U Oth Cocaine Metabols Negative (NEGATIVE) 08/14/16 18:35 U Cannabinoids Screen Positive (NEGATIVE) H 08/14/16 18:35 - Hospital Course Hospital Course: 36 year old male who presented to [facility] with complaints of LUQ pain for about a week. Patient was admitted and was seen by GI who wanted to perform an endoscopy for suspected gastritis as the cause of his symptoms. Patient did have a abdominal US which showed that he actually had bilateral nephrolithiasis and that this was a possible cause of his pain as well although he did not have any obstruction. Urology was consulted and the patient was told that he would need to follow up as an outpatient in order to have lithotripsy. Patient was sent to the endo suite to have an endoscopy however he had issues with his blood pressure being as high as 208 systolic and so the procedure was cancelled and an ICU evaluation was performed. The patient was accepted to the ICU and was started on a cardene drip in order to control his blood pressure. Patient had recently been started on lisinopril 10mg po qd and amlodipine 10mg po qd and he was not compliant with this regimen. patient later did reveal that he actually was originally started on high blood pressure medications in his early 20s and he attributed this to his bad eating habits. Patient states that he is also very stressed and working 3 jobs and this is the reason for his hypertension. Patient did eventually have an endoscopy once his blood pressure was improved and was found to have gastritis but no ulcers. Patient after the endoscopy continued to state that he had enough and that he wanted to leave, and despite being full educated about the risks and benefits of staying, including the benefit of controlling his blood pressure better (201/116 during AMA conversation), finding if there was a any cause of secondary hypertension given his young age, and the risks of possible headaches, strokes, subarachnoid hemorrhages, permanent disabilities, renal injury with need for dialysis, OR, or even , the patient still was adamant on leaving. Patient was given 7 days of medication and HIGHLY encouraged to see his primary care doctor IMMEDIATELY. Patient stated that he already had an appointment with him on . - Date & Time of H&P Date of H&P: 08/18/16 Time of H&P: 08:00 Discharge Exam - Head Exam Head Exam: ATRAUMATIC, NORMAL INSPECTION, NORMOCEPHALIC - Eye Exam Eye Exam: EOMI, Normal appearance - ENT Exam ENT Exam: Mucous Membranes Moist - Neck Exam Neck exam: Full Rom - Respiratory Exam Respiratory Exam: Clear to PA & Lateral. absent: Rales, Rhonchi, Wheezes - Cardiovascular Exam Cardiovascular Exam: RRR, +S1, +S2. absent: Gallop, Rubs, Systolic Murmur - GI/Abdominal Exam GI & Abdominal Exam: Normal Bowel Sounds, Soft. absent: Distended, Tenderness - Extremities Exam Extremities exam: normal inspection - Neurological Exam Neurological exam: Alert, CN II-XII Intact, Oriented x3 - Psychiatric Exam Psychiatric exam: Anxious - Skin Skin Exam: Dry, Intact, Warm Discharge Plan - Discharge Medications Prescriptions: amLODIPine [Norvasc] 10 mg PO DAILY #7 tab hydroCHLOROthiazide [Microzide] 12.5 mg PO DAILY #7 cap Lisinopril [Zestril] 20 mg PO DAILY #7 tab - Follow Up Plan Condition: STABLE Disposition: AGAINST MEDICAL ADVICE Instructions: Acute Abdominal Pain (DC), Acute Abdominal Pain (GEN), Hypertension (DC), Hypertension (GEN) Referrals: PCP,NO [Primary Care Provider] - <Azael Hyatt - Last Filed: 09/05/16 16:47> Provider - Provider Date of Admission: 08/15/16 14:48 Attending physician: Micheal Rasmussen MD Primary care physician: NO PRIMARY CARE PROVIDER Hospital Course - Lab Results Lab Results: Most Recent Lab Values WBC 6.1 10^3/ul (4.5-11.0) 08/17/16 05:30 RBC 4.96 10^6/uL (3.5-6.1) 08/17/16 05:30 Hgb 14.8 gm/dL (14.0-18.0) 08/17/16 05:30 Hct 41.0 % (42.0-52.0) L 08/17/16 05:30 MCV 82.7 fL (80.0-105.0) 08/17/16 05:30 MCH 29.8 pg (25.0-35.0) 08/17/16 05:30 MCHC 36.1 g/dl (31.0-37.0) 08/17/16 05:30 RDW 13.6 % (11.5-14.5) 08/17/16 05:30 Plt Count 278 10^3/uL (120.0-450.0) 08/17/16 05:30 MPV 9.4 fl (7.0-11.0) 08/17/16 05:30 Gran % 53.0 % (50.0-68.0) 08/17/16 05:30 Lymph % (Auto) 34.8 % (22.0-35.0) 08/17/16 05:30 [place] % (Auto) 8.9 % (1.0-6.0) H 08/17/16 05:30 Eos % (Auto) 3.1 % (1.5-5.0) 08/17/16 05:30 Baso % (Auto) 0.2 % (0.0-3.0) 08/17/16 05:30 Gran # 3.22 (1.4-6.5) 08/17/16 05:30 Lymph # 2.1 (1.2-3.4) 08/17/16 05:30 [place] # 0.5 (0.1-0.6) 08/17/16 05:30 Eos # 0.2 (0.0-0.7) 08/17/16 05:30 Baso # 0.01 K/mm3 (0.0-2.0) 08/17/16 05:30 PT 10.1 Seconds (9.9-11.8) 08/14/16 14:57 INR 0.94 (0.93-1.08) 08/14/16 14:57 APTT 31.5 Seconds (23.7-30.8) H 08/14/16 14:57 Sodium 140 mmol/L (132-148) 08/17/16 05:30 Potassium 4.2 mmol/L (3.6-5.0) 08/17/16 05:30 Chloride 105 mmol/L (98-107) 08/17/16 05:30 Carbon Dioxide 28 mmol/L (21-33) 08/17/16 05:30 Anion Gap 11 (10-20) 08/17/16 05:30 BUN 15 mg/dL (7-21) 08/17/16 05:30 Creatinine 1.2 mg/dL (0.5-1.4) 08/17/16 05:30 Est GFR ( Amer) > 60 08/17/16 05:30 Est GFR (Non-Af Amer) > 60 08/17/16 05:30 Random Glucose 116 mg/dL (70-110) H 08/17/16 05:30 Calcium 9.3 mg/dL (8.4-10.5) 08/17/16 05:30 Magnesium 1.9 mg/dL (1.7-2.2) 08/14/16 14:57 Total Bilirubin 0.4 mg/dL (0.2-1.3) 08/17/16 05:30 AST 38 U/L (15-59) 08/17/16 05:30 ALT 35 U/L (7-56) 08/17/16 05:30 Alkaline Phosphatase 62 U/L (38-133) 08/17/16 05:30 Lactate Dehydrogenase 413 U/L (333-699) 08/15/16 15:30 Total Creatine Kinase 109 U/L (35-230) 08/15/16 15:30 Troponin I < 0.01 ng/mL 08/15/16 15:30 Total Protein 8.2 g/dL (5.8-8.3) 08/17/16 05:30 Albumin 4.3 g/dL (3.0-4.8) 08/17/16 05:30 Globulin 4.0 gm/dL 08/17/16 05:30 Albumin/Globulin Ratio 1.1 (1.1-1.8) 08/17/16 05:30 Lipase 166 U/L (23-300) 08/14/16 14:57 Urine Color Yellow (YELLOW) 08/14/16 16:18 Urine Appearance Clear (CLEAR) 08/14/16 16:18 Urine pH 7.0 (4.7-8.0) 08/14/16 16:18 Ur Specific [place] 1.010 (1.005-1.035) 08/14/16 16:18 Urine Protein Negative mg/dL (<30 mg/dL) 08/14/16 16:18 Urine Glucose (UA) Negative mg/dL (NEGATIVE) 08/14/16 16:18 Urine Ketones Negative mg/dL (NEGATIVE) 08/14/16 16:18 Urine Blood Negative (NEGATIVE) 08/14/16 16:18 Urine Nitrate Negative (NEGATIVE) 08/14/16 16:18 Urine Bilirubin Negative (NEGATIVE) 08/14/16 16:18 Urine Urobilinogen 0.2 E.U./dL (<1 E.U./dL) 08/14/16 16:18 Ur Leukocyte Esterase Negative [place]/uL (NEGATIVE) 08/14/16 16:18 Urine Opiates Screen Positive (NEGATIVE) H 08/14/16 18:35 Urine Methadone Screen Negative (NEGATIVE) 08/14/16 18:35 Ur Barbiturates Screen Negative (NEGATIVE) 08/14/16 18:35 Ur Phencyclidine Scrn Negative (NEGATIVE) 08/14/16 18:35 Ur Amphetamines Screen Negative (NEGATIVE) 08/14/16 18:35 U Benzodiazepines Scrn Negative (NEGATIVE) 08/14/16 18:35 U Oth Cocaine Metabols Negative (NEGATIVE) 08/14/16 18:35 U Cannabinoids Screen Positive (NEGATIVE) H 08/14/16 18:35 Attending/Attestation - Attestation I have personally seen and examined this patient.: Yes I have fully participated in the care of the patient.: Yes I have reviewed all pertinent clinical information, including history, physical exam and plan: Yes Notes (Text): 09/05/16 16:47 Medical record note made by the resident after discussion with my direction and input after the patient was personally seen and examined by me. I have reviewed the chart and agree that the record accurately reflects by personal performance of the history, physical exam, data review, and medical decision-making, in the course for the patient. I have also personally directed the plan of care.
== END 2016-08-17 18:20 | disposition left against medical advice (07) | DRG 392 ==
LOC: ED 14:32 → ERH 18:21 → 3RNO 21:06 → CCU 08-15 14:46 → OBSVTOIN 08-15 14:48
PROVIDERS: ADMIT Internal Medicine; ATTEND Internal Medicine
PROC: 0DB68ZX Excision of Stomach, Via Natural or Artificial Opening Endoscopic, Diagnostic (ICD-10-PCS; principal; 2016-08-15)
DX: R10.13 Epigastric pain (principal); I10 Essential (primary) hypertension; N20.0 Calculus of kidney; K29.70 Gastritis, unspecified, without bleeding; K21.9 Gastro-esophageal reflux disease without esophagitis

== ENCOUNTER 2018-05-28 10:16 | Outpatient (CLI) | payer BC | END 2018-05-28 10:17 | disposition home or self-care (01) | LOC: CARDIO 10:16 ==

== ENCOUNTER 2018-06-20 14:04 | Emergency (ER) | payer BC ==
[2018-06-20 15:02] VITALS: BMI 28.3
[2018-06-20] MEDS ORDERED: Labetalol 5mg/ml (4ml) IV STA (15:19)
--- NOTE | 2018-06-20 15:36 | ED PDOC ---
Arrival/HPI - General Chief Complaint: High Blood Pressure Historian: Patient - History of Present Illness Narrative History of Present Illness (Text): 06/20/18 15:32 38 year old M with pmh of hypertension presents for medical clearance. Dr. Agrawal advised patient to report to emergency department to have his blood pressure decreased prior to his colonoscopy and endoscopy. Patient is complaint with hypertension medications. Patient denies any fevers, chills, headache, dizziness, chest pain, shortness of breath, dyspnea on exertion, cough, abdomina l pain, nausea, vomiting, diarrhea, back pain, neck pain, or any other complaint. PMD: Dr. Cotter Time/Duration: Prior to Arrival Symptom Onset: Sudden Symptom Course: Unchanged Activities at Onset: Light Context: Home Past Medical History - Provider Review Nursing Documentation Reviewed: Yes - Infectious Disease Hx of Infectious Diseases: None - Tetanus Immunization Tetanus Immunization: Unknown - Cardiac Hx Cardiac Disorders: Yes Hx Hypertension: Yes - Pulmonary Hx Respiratory Disorders: No - Neurological Hx Neurological Disorder: No - HEENT Hx HEENT Disorder: No - Renal Hx Renal Disorder: No - Endocrine/Metabolic Hx Endocrine Disorders: No - Hematological/Oncological Hx Blood Disorders: No - Integumentary Hx Dermatological Disorder: No - Musculoskeletal/Rheumatological Hx Musculoskeletal Disorders: No - Gastrointestinal Hx Gastrointestinal Disorders: No - Genitourinary/Gynecological Hx Genitourinary Disorders: No - Psychiatric Hx Psychophysiologic Disorder: No Hx Substance Use: Yes Family/Social History - Physician Review Nursing Documentation Reviewed: Yes Family/Social History: Unknown Family HX Smoking Status: Former Smoker Hx Alcohol Use: Yes Frequency of alcohol use: Socially Hx Substance Use: Yes Substance used: marijuana Allergies/Home Meds Allergies/Adverse Reactions: Allergies No Known Allergies Allergy (Verified 06/20/18 15:02) Home Medications: Home Meds Medication Instructions Recorded Confirmed amLODIPine [Norvasc] 5 mg PO DAILY 06/20/18 06/20/18 hydroCHLOROthiazide [Microzide] 25 mg PO DAILY 06/20/18 06/20/18 Review of Systems - Physician Review All systems were reviewed & negative as marked: Yes - Review of Systems Constitutional: Normal Eyes: Normal ENT: Normal Respiratory: Normal Cardiovascular: Normal Gastrointestinal: Normal Genitourinary Male: Normal Musculoskeletal: Normal Skin: Normal Neurological: Normal Endocrine: Normal Hemo/Lymphatic: Normal Psychiatric: Normal Physical Exam Vital Signs Reviewed: Yes Vital Signs Temp Pulse Resp BP Pulse Ox 06/20/18 15:02 98.6 F 83 18 181/128 H 100 Temperature: Afebrile Blood Pressure: Hypertensive Pulse: Regular Respiratory Rate: Normal Appearance: Positive for: Well-Appearing, Non-Toxic, Comfortable Pain Distress: Mild Mental Status: Positive for: Alert and Oriented X 3 - Systems Exam Head: Present: Atraumatic, Normocephalic Pupils: Present: PERRL Extroacular Muscles: Present: EOMI Conjunctiva: Present: Normal Mouth: Present: Moist Mucous Membranes Neck: Present: Normal Range of Motion Respiratory/Chest: Present: Clear to Auscultation, Good Air Exchange. No: Respiratory Distress, Accessory Muscle Use Cardiovascular: Present: Regular Rate and Rhythm, Normal S1, S2. No: Murmurs Abdomen: Present: Normal Bowel Sounds. No: Tenderness, Distention, Peritoneal Signs Back: Present: Normal Inspection Upper Extremity: Present: Normal Inspection. No: Cyanosis, Edema Lower Extremity: Present: Normal Inspection. No: Edema Neurological: Present: Speech Normal, Motor Func Grossly Intact, Normal Sensory Function Skin: Present: Warm, Dry, Normal Color. No: Rashes Psychiatric: Present: Alert, Oriented x 3, Normal Insight, Normal Concentration Medical Decision Making ED Course and Treatment: 06/20/18 15:36 Impression: 38 year old M presents for medical clearance. Dr. Agrawal advised patient to report to emergency department to have his blood pressure decreased prior to his colonoscopy and endoscopy. Patient is complaint with hypertension medications Plan: -- Labs -- EKG -- Labetalol --Clonidine -- Reassess and disposition Prior Visits: Notes and results from previous visits were reviewed. Patient was last seen in the emergency department on Progress Notes: 06/20/18 17:45 Blood pressure noted to be elevated 183/[address] Agrawal(GI), anesthesiologist and GI fellow at the bedside with patient adamantly refusing to proceed with staying overnight for blood pressure monitoring and procedure in the morning. Discussion with patient persuading him to stay overnight for monitoring of pressures and for urgent colonscopy with him agreeing to stay. Case endorsed to Dr. Andrea(medical service) who will resume patient's care. - Lab Interpretations Lab Results: 06/20/18 16:10 06/20/18 16:10 Lab Results 06/20/18 16:10: Sodium 142, Potassium 4.3, Chloride 102, Carbon Dioxide 28, Anion Gap 15, BUN 11, Creatinine 1.3, Est GFR ( Amer) > 60, Est GFR (Non- Af Amer) > 60, Random Glucose 94, Calcium 10.1, Magnesium 2.1, Total Bilirubin 0.8, AST 71 H, ALT 49, Alkaline Phosphatase 74, Total Protein 9.8 H, Albumin 5.0 H, Globulin 4.8, Albumin/Globulin Ratio 1.0 L 06/20/18 16:10: PT 11.1, INR 1.00, APTT 32.1 06/20/18 16:10: WBC 10.2, RBC 5.34, Hgb 16.6, Hct 46.3, MCV 86.7, MCH 31.1, MCHC 35.9, RDW 14.0, Plt Count 325, MPV 9.9, Neut % (Auto) 55.6, Lymph % (Auto) 34.9, [place] % (Auto) 7.6 H, Eos % (Auto) 1.8, Baso % (Auto) 0.1, Lymph # (Auto) 3.6 H, [place] # (Auto) 0.8 H, Eos # (Auto) 0.2, Baso # (Auto) 0.01, Absolute Neuts (auto) 5.67 I have reviewed the lab results: Yes - RAD Interpretation Radiology Orders: 06/20/18 15:10 CHEST PORTABLE [RAD] Stat - EKG Interpretation EKG Interpretation (Text): 06/20/18 19:58 EKG NSR @ 80 bpm, Incomplete RBBB, No ST elevations Interpreted by ED Physician: Yes Type: 12 lead EKG - Medication Orders Current Medication Orders: Discontinued Medications Labetalol HCl (Trandate) 20 mg IV STAT STA Stop: 06/20/18 15:20 - Scribe Statement The provider has reviewed the documentation as recorded by the Terell Lara All medical record entries made by the Ranjanibpatricia were at my direction and personally dictated by me. I have reviewed the chart and agree that the record accurately reflects my personal performance of the history, physical exam, medical decision making, and the department course for this patient. I have also personally directed, reviewed, and agree with the discharge instructions and disposition. Disposition/Present on Arrival - Present on Arrival Any Indicators Present on Arrival: No History of DVT/PE: No History of Uncontrolled Diabetes: No Urinary Catheter: No History of Decub. Ulcer: No History Surgical Site Infection Following: None - Disposition Have Diagnosis and Disposition been Completed?: Yes Diagnosis: Hypertensive urgency, Encounter for diagnostic endoscopy Disposition: AGAINST MEDICAL ADVICE Disposition Time: 17:45 Patient Plan: Admission Condition: FAIR
--- NOTE | 2018-06-20 16:21 | RAD ---
Date of service: 06/20/2018 HISTORY: sob COMPARISON: Chest radiographs 08/14/2016. TECHNIQUE: 1 view obtained. FINDINGS: LUNGS: No active pulmonary disease. PLEURA: No significant pleural effusion identified, no pneumothorax apparent. CARDIOVASCULAR: No aortic atherosclerotic calcification present. Normal cardiac size. No pulmonary vascular congestion. OSSEOUS STRUCTURES: No significant abnormalities. VISUALIZED UPPER ABDOMEN: Normal. OTHER FINDINGS: None. IMPRESSION: No interval acute cardiopulmonary disease appreciated.
[2018-06-20] MEDS ORDERED: Sodium Chloride 0.9% 1,000 ML IV STA (16:22)
[2018-06-20 16:24] LABS: PARTIAL THROMBOPLASTIN TIME 32.1 Seconds (26.9-38.3); PROTHROMBIN TIME 11.1 SECONDS (9.4-12.5)
[2018-06-20 16:26] LABS: BLOOD UREA NITROGEN 11 mg/dL (7-21); CALCIUM 10.1 mg/dL (8.4-10.5); GFR NON-AFRICAN AMERICAN > 60
[2018-06-20 16:28] LABS: ALT/SGPT 49 U/L (7-56); AST/SGOT 71 U/L (17-59)
[2018-06-20 16:31] LABS: BASO # 0.01 K/mm3 (0.0-2.0); BASO % 0.1 % (0.0-3.0); EOS # 0.2 (0.0-0.7); EOS % 1.8 % (1.5-5.0); HEMOGLOBIN 16.6 g/dL (14.0-18.0); LYMPH # 3.6 (1.2-3.4); LYMPH % 34.9 % (22.0-35.0); MEAN CELL VOLUME 86.7 fl (80.0-105.0); MEAN CORPUSCULAR HEMOGLOBIN 31.1 pg (25.0-35.0); MEAN CORPUSCULAR HGB CONC 35.9 g/dl (31.0-37.0); MEAN PLATELET VOLUME 9.9 fl (7.0-11.0); MONO # 0.8 (0.1-0.6); MONO % 7.6 % (1.0-6.0); RBC 5.34 10^6/uL (3.5-6.1); WHITE BLOOD COUNT 10.2 10^3/uL (4.5-11.0)
[2018-06-20 17:32] VITALS: TEMP 98.3
[2018-06-20 19:23] VITALS: RESP 18; O2SAT 99
[2018-06-20] MEDS ORDERED: Magnesium Citrate Oral SOL (300 ml) PO ONE (19:41)
[2018-06-20] MEDS ORDERED: Bisacodyl 5mg EC Tab PO ONE (19:42)
[2018-06-20 20:14] VITALS: BP 175/98; PULSE 93
--- NOTE | 2018-06-20 22:26 | CP.PCM.PCO ---
Addendum Addendum: 06/20/18 22:26 OVERNIGHT RESIDENT NOTE JOCELYN GUPTA PGY1 Nursing staff in ED paged resident in regards to patient requesting to sign out against medical advice. I went to speak with the patient. Pt was AxO x 3, ambulating well, had rational thought process, did not pose harm to himself or others. He requested to sign out AMA. Benefits of hospitalization were explained in extensive detail. Risks of signing out against medical advice were also explained in extensive. Pt demonstrated understanding of our conversation. Pt had signed appropriate AMA paperwork and nursing staff had witnessed conversation and filled out paperwork.
--- NOTE | 2018-06-21 01:28 | HP ---
DATE OF EXAM: 06/20/2018 HISTORY OF PRESENT ILLNESS: The patient is a 38-year-old who came in for elective endoscopy and colonoscopy by Dr Flores. His blood pressure was found to be around 200, procedure was canceled and Dr. Agrawal advised him to go to emergency room because of hypertensive emergency and close monitoring and possible endoscopy, colonoscopy when blood pressure settle down. The patient denies any headache. No chest pain. No shortness of breath. No dizziness. The patient claims to be compliant with medication. No shortness of breath on exertion. No chest pain. PAST MEDICAL HISTORY: Significant only for hypertension. MEDICATIONS AT HOME: Norvasc 5 mg daily and hydrochlorothiazide 25 daily. SOCIAL HISTORY: Used to be smoker. Socially drinks. PHYSICAL EXAMINATION GENERAL: Awake and alert, able to communicate. VITAL SIGNS: Afebrile; pulse 80; respirations 17; blood pressure on arrival was 179/111, was given labetalol 20 mg IV stat and then hydralazine was given 10 mg IV stat. He is being placed in observation to control his blood pressure and possible endoscopy, colonoscopy in a.m. HEART: S1, S2 audible. ABDOMEN: Soft and nontender. No rebound. No guarding. NEUROLOGIC: He is awake, alert, oriented, communicative, nonfocal. LABORATORY EXAMINATION: WBC 10.2, hemoglobin 16, hematocrit 46, platelet 325. PT 11.1, INR 1.00. Chemistry: Sodium 142, potassium 4.3, chloride 102, CO2 of 28, BUN 11, creatinine 1.3, blood sugar 94, AST 71, ALT 49, total protein 9.8. ASSESSMENT: Hypertensive urgency, the patient seems to be compliant. PLAN: We will admit the patient, Norvasc is given. I will order for losartan 100 mg stat and start him on clonidine if his blood pressure is above 150. He will be kept n.p.o. We will give him clear liquid and we will reevaluate in a.m. Keenan Andrea MD
--- NOTE | 2018-06-21 02:07 | CON ---
DATE: 06/20/2018 REASON FOR CONSULTATION: Abdominal bloating, discomfort, rectal bleeding, change of bowel habit, and uncontrolled hypertension for GI evaluation. HISTORY OF PRESENT ILLNESS: This 38-year-old patient was initially scheduled to have an EGD and colonoscopy as outpatient to further evaluate change of bowel habits with urgency to the move bowels and strains to move the bowel, rectal bleeding, and postprandial abdominal bloating and discomfort. The patient is symptomatic while on PPI. History of nephrolithiasis and significant hypertension. The patient was scheduled for the endoscopy and colonoscopy 2 months prior. At that time, this was also canceled because of the highly elevated blood pressure. At this time, the patient was in the center earlier today, was found to have a systolic blood pressure over 210 and diastolic over 132. The patient was recommended to go to the emergency room for further evaluation and optimization. The patient was very concerned and to have this procedure done because of the persistence of abdominal complaint, but we clearly told the patient that the patient need to be first evaluated in the emergency room optimized the medical condition before considering the endoscopic and colonoscopic evaluation. I did discuss with Dr. 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 He was seen in the office two weeks prior and systolic blood pressure was elevated, but not significantly. The patient mentioned that he has been compliant with the medications and he was taking the medications even today. I did discuss with the emergency room physician regarding this patient. The reasonable thing is now optimize his medical condition before considering any GI evaluation. I also spoke with anesthesiologist regarding this patient. PAST MEDICAL HISTORY: Significant as above, history of hypertension, dyslipidemia, chronic gastroesophageal reflux disease, history of H. pylori gastritis treated, and hyperthyroidism. ALLERGIES: NO KNOWN DRUG ALLERGIES. SOCIAL HISTORY: Positive for smoking and alcohol socially. FAMILY HISTORY: Noncontributory. REVIEW OF SYSTEMS: Positive as above. Other systems reviewed. No headache. No focal weakness. No chest pain. No palpitations. No respiratory complaints, otherwise. Other systems reviewed negative. PHYSICAL EXAMINATION: GENERAL: The patient is lying on the bed, not in acute distress. VITAL SIGNS: Temperature is 97.5, pulse 111, the patient's blood pressure when the patient came in was in [facility] emergency room it was 181/128. The patient did receive 20 mg of labetalol. The pressure remains still high 179/111. He is afebrile. HEENT: Atraumatic and anicteric. NECK: Supple. HEART: S1 and S2 heard. LUNGS: Bilateral air entry present. ABDOMEN: Soft. There is no tenderness. EXTREMITIES: No edema. No cyanosis. NEUROLOGIC: Alert and oriented. Moves all the extremities. LABORATORY DATA: Hemoglobin 16.6, hematocrit 46.3, WBC 10.2, and platelets 325. Chemistry is essentially unremarkable except ALT is mildly elevated 71. , albumin 5, and globulin 4.8. IMPRESSION AND PLAN: This 38-year-old patient with uncontrolled hypertension originally plan to have the esophagogastroduodenoscopy and colonoscopy to further evaluate her postprandial dyspeptic symptoms and also change in bowel habits and rectal bleeding. The patient's blood pressure still remains elevated. Admission for optimization and if the patient's blood pressure is controlled, it may be reasonable to consider endoscopic evaluation and the priority now is to optimize the medical condition. His other comorbidities include dyslipidemia, hyperthyroidism, we will also request for TSH and thyroid profile. Thank you very much for allowing us to participate in the care of the patient. Marjorie Agrawal MD
[2018-06-21] MEDS ORDERED: Bisacodyl 5mg EC Tab PO ONE (06:00)
--- NOTE | 2018-06-21 10:34 | CARD ---
APPROVED REPORT Date of service: 06/20/2018 EKG Measurement Heart [id number] <Conclusion> Normal sinus rhythm Possible Left atrial enlargement Incomplete right bundle branch block Borderline ECG
== END 2018-06-20 21:37 | disposition left against medical advice (07) ==
LOC: ED 14:04 → ERH 16:52 → UNDOADMOB 16:52 → ERH 18:39 → 5RNO 23:02 → ERH 23:03 → 5RNO 23:03
DX: I10 Essential (primary) hypertension (principal); Z76.89 Persons encountering health services in other specified circumstances; Z87.891 Personal history of nicotine dependence
CPT/HCPCS: 71045; 80053; 83735; 85025; 85610; 85730; 93005; 96361; 96374; 96375; 99285; J0360; J7030